=== PATIENT | male | born 1950 | race Caucasian/White ===

== ENCOUNTER 2018-08-17 12:30 | Inpatient (IN) | payer MEDICARE ==
--- NOTE | 2018-08-17 13:29 | RAD ---
XR Chest 1 View Portable History: Altered mental status Comparison: None. Findings: Abnormal nodular densities left lung base. No pneumothorax. No effusion. No acute osseous a bnormality. Cardiac silhouette and mediastinal contours are within normal limits. Impression: Abnormal left basilar opacity concerning for infection. Follow-up after treatment recomme nded.
[2018-08-17 13:33] LABS: Hemoglobin 15.9 g/dL (14.0-18.0); Mean Corpuscular HGB CONC 33.9 g/dL (32.0-36.0); Mean Corpuscular Hemoglobin 32.3 pg (27.0-31.0); Mean Corpuscular Volume 95.1 fL (78.0-98.0); RBC Distribution Width 14.6 % (11.5-14.5); Red Blood Cell (RBC) Count 4.92 mill/uL (4.70-6.10); White Blood Cell (WBC) Count 7.2 thou/uL (4.8-10.8)
[2018-08-17 13:35] LABS: INR-International Normal Ratio 2.1
[2018-08-17 13:36] LABS: PTT 45.4 SEC (22.9-36.1)
[2018-08-17 13:42] LABS: Band 1 % (5-11); Eosinophils 1 % (0-10); Lymphocytes 11 % (21-51); MDiff Complete? YES; Mean Platelet Volume 7.3 fL (7.4-10.4); Monocytes 3 % (0-10); Neutrophil 84 % (42-75); Platelet Count 83 thou/uL (130-400); Platelet Morphology Comment Appears Decreased; RBC Morphology Normal
[2018-08-17 13:45] LABS: ALT (SGPT) 81 U/L (8-55); AST (SGOT) 115 U/L (5-34); Albumin 2.7 g/dL (3.4-4.8); Alkaline Phosphatase 128 U/L (40-150); Anion Gap 16 mmol/L (10-20); BUN (Urea Nitrogen) 20 mg/dL (8.4-25.7); CK (CPK) 313 U/L (30-200); Calc. Creatinine Clearance 0 mL/min (70-130); Carbon Dioxide 20 mmol/L (23-31); Chloride 79 mmol/L (98-107); Estimated GFR-MDRD Greater than 90; Glucose 74 mg/dL (80-115); Lipase 91 U/L (8-78); Potassium 4.8 mmol/L (3.5-5.1); Protein, Total 5.7 g/dL (5.8-8.1)
[2018-08-17 13:49] LABS: Acetaminophen Less than 6.0 mcg/mL (10.0-30.0); Alcohol Less than 10 mg/dL (Less than 10); Magnesium 1.8 mg/dL (1.6-2.6); Salicylate Less than 8.0 mg/dL (15.0-30.0)
[2018-08-17 13:52] LABS: Sodium 110 mmol/L (136-145)
--- NOTE | 2018-08-17 14:37 | CT ---
CT BRAIN WITHOUT CONTRAST: Date: 08/17/18 HISTORY: Altered mental status. FINDINGS: No evidence of infarct, hemorrhage, midline shift, or abnormal extra-axial fluid collections are seen . The ventricular size is appropriate and the basilar cisterns are patent. The bony calvarium is inta ct. The visualized paranasal sinuses and mastoid air cells are well aerated. IMPRESSION: No CT evidence of acute intracranial process. POS: T[facility]
--- NOTE | 2018-08-17 14:50 | PDOC.FPRHP ---
- History of Present Illness Chief Complaint: weakness History of Present Illness: 67yo M with pmh of EtOH abuse and alcoholic cirrhosis (sober 2 years now), presents with 2 weak history of weakness and decreased PO intake. Pt sister has also noticed he has been becoming more yellow and abdomen has been increasing in size. Pt recently moved from [place] and has not established medical care in [place] yet. He does have a operations developer in [place] but has never required a paracentesis. No fever/chills, no GIB, no diarrhea/constipation. Pt does report EGD but is unsure if he has varices. ED Course: 1L NS, paracentesis - Allergies/Adverse Reactions Allergies Allergy/AdvReac Type Severity Reaction Status Date / Time No Known Allergies Allergy Unverified 08/17/18 17:19 - Home Medications Medication Instructions Recorded Confirmed Type Furosemide [Lasix] 40 mg PO DAILY 08/17/18 08/17/18 History Levothyroxine Sodium [Synthroid] 100 mcg PO DAILY 08/17/18 08/17/18 History Pravastatin Sodium 20 mg PO HS 08/17/18 08/17/18 History Spironolactone [Aldactone] 100 mg PO DAILY 08/17/18 08/17/18 History Temazepam 15 mg PO HS 08/17/18 08/17/18 History - History PMHx: Alcoholic cirrhosis, right bundle branch block, hypothyroid, hypertension , HLD PSHx: none FHx: non contributory Social: former alcohol abuse (sober 2 years), no smoking, denies drugs - Review of Systems General: reports: fatigue. denies: fever/chills Eyes: denies: eye pain, vision changes ENT: denies: nasal congestion Respiratory: denies: cough, congestion Cardiovascular: denies: chest pain, palpitation Gastrointestinal: denies: nausea, vomiting, diarrhea, constipation, abdominal pain, GI bleeding Genitourinary: denies: incontinence, dysuria Skin: denies: rashes, lesions Musculoskeletal: denies: pain, stiffness Neurological: reports: weakness. denies: syncope, seizure Psychological: denies: anxiety, depression - Vital signs BP: 116/66, Pulse: 76, Resp: 18, Temp: 97.7, Pain: 0, O2 sat: 94 on RA, Time: 14:35. weigh 103kg - Physical Exam Constitutional: NAD, awake, alert and oriented HEENT: grossly normal vision, grossly normal hearing -HEENT: scleral icterus, moderately dry MM Neck: supple, trachea midline Chest: no-tender to palpation Heart: RRR, normal S1/S2, other (+3 pitting edema in bilat LEs) Lungs: CTAB, no respiratory distress Abdomen: other (distended, positive fluid wave, no ttp) Musculoskeletal: normal structure, normal tone Neurological: no focal deficit, CN II-XII intact, normal sensation, DTRs 2+ Skin: good turgor -Skin: jaundice Heme/Lymphatic: no purpura, no petechia Psychiatric: normal mood and affect, good judgment and insight FMR H&P: Results - Labs Result Diagrams: 08/18/18 04:53 08/18/18 07:26 Lab results: WBC 7.2 thou/uL (4.8-10.8) 08/17/18 13:15 Hgb 15.9 g/dL (14.0-18.0) 08/17/18 13:15 Hct 46.7 % (42.0-52.0) 08/17/18 13:15 MCV 95.1 fL (78.0-98.0) 08/17/18 13:15 Plt Count 83 thou/uL (130-400) L 08/17/18 13:15 Band Neuts % (Manual) 1 % (5-11) L 08/17/18 13:15 Sodium 110 mmol/L (136-145) L* 08/17/18 13:15 Potassium 4.8 mmol/L (3.5-5.1) 08/17/18 13:15 Chloride 79 mmol/L (98-107) L 08/17/18 13:15 Carbon Dioxide 20 mmol/L (23-31) L 08/17/18 13:15 BUN 20 mg/dL (8.4-25.7) 08/17/18 13:15 Creatinine 0.81 mg/dL (0.7-1.3) 08/17/18 13:15 Glucose 74 mg/dL (80-115) L 08/17/18 13:15 Calcium 8.0 mg/dL (7.8-10.44) 08/17/18 13:15 Total Bilirubin 7.0 mg/dL (0.2-1.2) H 08/17/18 13:15 AST 115 U/L (5-34) H 08/17/18 13:15 ALT 81 U/L (8-55) H 08/17/18 13:15 Alkaline Phosphatase 128 U/L (40-150) 08/17/18 13:15 Ammonia 48 umol/L (18-72) 08/17/18 13:15 Creatine Kinase 313 U/L (30-200) H 08/17/18 13:15 Serum Total Protein 5.7 g/dL (5.8-8.1) L 08/17/18 13:15 Albumin 2.7 g/dL (3.4-4.8) L 08/17/18 13:15 Lipase 91 U/L (8-78) H 08/17/18 13:15 FMR H&P: A/P - Problem List (1) Alcoholic cirrhosis of liver with ascites Current Visit: Yes Status: Acute Code(s): K70.31 - ALCOHOLIC CIRRHOSIS OF LIVER WITH ASCITES (2) Hyponatremia Current Visit: Yes Status: Acute Code(s): E87.1 - HYPO-OSMOLALITY AND HYPONATREMIA (3) HTN (hypertension) Current Visit: Yes Status: Acute Code(s): I10 - ESSENTIAL (PRIMARY) HYPERTENSION (4) HLD (hyperlipidemia) Current Visit: Yes Status: Acute Code(s): E78.5 - HYPERLIPIDEMIA, UNSPECIFIED (5) Hypothyroid Current Visit: Yes Status: Acute Code(s): E03.9 - HYPOTHYROIDISM, UNSPECIFIED - Plan Severe range hyponatremia A- Likely chronic with mild sympoms at this time. Pt appeared slightly dry on exam but is s/p one L NS from ED P- Admit to IMCU -fluid restrict to 1500ml -BMP q1hr for 6 hours, then AM bmp. will monitor closely mild encephalopathy likely 2/2 above A- likely from hyponatremia vs liver failure P- monitor mental status, treatment per above Cirrhosis A- Dx in 2017, MELD score of 29. Pt has not required paracentesis as of now P- hepatitis studies -paracentesis performed -will consider GI consult ascites 2/2 alcoholic cirrhosis A- Pt s/p paracentesis for the first time (5L), INR 2.1, ammonia 48 P- f/u CSF studies -monitor vitals thrombocytopenia A- likely 2/2 cirrhosis, platelets 88. Pt has some blood around mouth but pt denies easy bleeding P- will continue to monitor HLD -home statin Hypothyroid -home levothyroxine CODE: FULL FMR H&P: Upper Level - Pertinent history 67 yo male who recently moved to the area presents for evaluation of weakness and AMS. Patient has known liver cirrhosis since 2017 due to alcoholism. Patient reports enlarging abdomen and increased weakness and confusion over last several days. His sister reports decreased PO intake over last 2 weeks as well. No fevers, chills, n/v/d, or seizure activity. Please see contracts intern note above for further history. Physical Exam: General: Male appears older than stated age HEENT: Scleral icterus, sublingual jaundice CV: RRR, no murmurs Respiratory: CTA-bilaterally, no wheezing Abdomen: Distended, obvious umbilical hernia, nontender Extremities: 3+ pitting edema bilaterally Neuro: No focal deficits, CN 2-12 grossly intact Psych: A&Ox3 - Plan Date/Time: 08/17/18 [id number] I, Kashif Munguia MD, have evaluated this patient and agree with findings/ plan as outlined by contracts intern resident. Pertinent changes/additions are listed here. 1. Symptomatic Hyponatremia - IVF - Goal to raise Na by 4-6 in first 24 hours - Admit ICU - Repeat BMPs to monitor 2. Liver cirrhosis - Diagnosis since 2017 - Paracentesis completed in ED - Ascitic fluid sent for studies to rule out SBP, other etiologies - Will send for Hepatic studies - Consider GI consultation - Caution with home diuretics - MELD SCORE 29 -> 19.6% 3 month mortality 3. Thrombocytopenia - Likely secondary to #2 - Hold on anticoagulation - Monitor bleeding 4. Hypothyroidism - Continue home medications 5. HLD - Continue home medications CODE STATUS: FULL CODE Disposition: Guarded, will admit to IMCU for further evaluation. Addendum - Attending - Attending Attestation Date/Time: 08/18/18 5639 I personally evaluated the patient and discussed the management with Dr. Cobos and Nilda on 08/17. I agree with the History, Examination, Assessment and Plan documented above with any addition or exceptions noted below. Please note that we did not obtain CSF but ascitic fluid in order to exclude SBP and establish the diagnosis for new onset ascites, as well as provide symptomatic relief. Deliberately avoided large volume due to hypoNa, which we will fluid restrict and observe closely.
[2018-08-17 17:09] LABS: Bilirubin Small (Negative); Blood, Urine Negative (Negative); Clarity CLEAR (Clear); Glucose, Urine (Dipstick) Negative (Negative); Leukocyte Small (Negative); Nitrite Negative (Negative); Protein, Urine (Dipstick) Negative (Neg-Trace); Specific Gravity, Urine 1.024 (1.002-1.036); pH, Urine 5.5 (5.0-9.0)
[2018-08-17 17:12] LABS: Bacteria/HPF None Seen HPF (None Seen); Hyaline Casts/LPF 0-3 HYALINE CAST LPF (0-3 Hyaline); Pathc Cast-AUWi Flag 0.13 (0-2.49); RBC/HPF 0-3 HPF (0-3); Squamous Epithelial None Seen HPF (0-3)
[2018-08-17] MEDS ORDERED: Pantoprazole 40 MG VIAL IVP SCH (17:18)
[2018-08-17] MEDS ORDERED: Calcium Carbonate 500 MG ChewTAB PO PRN (17:18)
[2018-08-17] MEDS ORDERED: Ondansetron PF 4 MG/2 ML Vial IVP PRN (17:18)
[2018-08-17] MEDS ORDERED: Ondansetron ODT 4 MG TAB PO PRN (17:18)
[2018-08-17 17:21] LABS: Amphetamine Not Detected (NotDetected); Barbiturates Screen Not Detected (NotDetected); Benzodiazepine Screen Detected (NotDetected); Cocaine Metabolite Screen Not Detected (NotDetected); Medtox Control Line Valid? VALID (VALID); Medtox Reader # READER 4; Methadone Not Detected (NotDetected); Methamphetamine Not Detected (NotDetected); Opiate Screen Not Detected (NotDetected); Oxycodone Screen Not Detected (NotDetected); Phencyclidine (PCP) Not Detected (NotDetected); THC/Cannabinoid Screen Not Detected (NotDetected); Tricyclic Screen Not Detected (NotDetected)
[2018-08-17] MEDS ORDERED: Sodium Chloride 0.9% (PF) 10 ML VIAL FS PRN (17:38)
[2018-08-17 18:15] LABS: BF Color Yellow; BF RBC Count - Manual 2150 /cumm; BF WBC/Nonhematics Ct. - Manua 26 /cumm; Body Fluid Source Ascites Body Fluid; Clarity Hazy (Clear); Tube # 3
--- NOTE | 2018-08-17 18:39 | PDOC.OP ---
Operative Note - Operative Note Operative Note: INDICATION: Ascites PROCEDURE PLANNER/SCHEDULER: Nilda Cobos Williamson ATTENDING PHYSICIAN: In Attendance (Y) Dr. Isaac Moeller Ultrasound used to raciel location: Y CONSENT: Consent was obtained from patient prior to the procedure. Indications, risks, and benefits were explained at length. PROCEDURE SUMMARY: A time-out was performed. My hands were washed immediately prior to the procedure. I wore a surgical cap, mask with protective eyewear, sterile gown and sterile gloves throughout the procedure. The area was cleansed and draped in usual sterile fashion using chlorhexidine scrub. Anesthesia was achieved with 1% lidocaine. The RLQ of the abdomen was prepped and draped in a sterile fashion using chlorhexidine scrub. 1% lidocaine was used to numb the skin, soft tissue and peritoneum. The paracentesis catheter was inserted and advanced with negative pressure until straw colored fluid was aspirated. Approximately 50 mL of ascitic fluid was collected and sent for laboratory analysis. The catheter was then connected to the vaccutainer and 5 liters of additional ascitic fluid were drained. The catheter was removed and no leaking was noted. Pressure and gauze was held for 4 minutes. A bandaid was placed over the puncture wound. The patient tolerated the procedure well without any immediate complications. Estimated blood loss was 5ml.
[2018-08-17 18:55] LABS: Anion Gap 12 mmol/L (10-20); BUN (Urea Nitrogen) 19 mg/dL (8.4-25.7); Calc. Creatinine Clearance 119 mL/min (70-130); Calcium 7.8 mg/dL (7.8-10.44); Carbon Dioxide 25 mmol/L (23-31); Chloride 80 mmol/L (98-107); Estimated GFR-MDRD Greater than 90; Glucose 72 mg/dL (80-115); Potassium 4.7 mmol/L (3.5-5.1)
[2018-08-17 19:02] LABS: BF Segmented Neutrophils 5 %; Cell Count Non Hematic 27 %; Lymphocytes 68 %
[2018-08-17 19:02] LABS: Sodium 112 mmol/L (136-145)
[2018-08-17 19:15] LABS: Syphilis Antibody Nonreactive (Nonreactive); Syphilis Antibody Index 0.08 S/CO (<1.00 Non-Reactive)
[2018-08-17 19:17] LABS: HBCM Index 0.13 S/CO (0-0.79); HBSAg Index 0.37 S/CO (0-0.99); HIV (1/2) Antibody/Antigen Non-Reactive (NonReactive); HIV 1/2 INDEX 0.11 S/CO (<1.00); Hep A IgM AB Non-Reactive (NonReactive); Hep A IgM S/CO 0.15 S/CO (0-0.79); Hep B Surf Ag Non-Reactive S/CO (NonReactive); Hep C IgG Ab Non-Reactive (NonReactive); Hep C Index 0.29 S/CO (0-0.79); Hepatitis B Core IgM Abs Non-Reactive (NonReactive)
[2018-08-17 19:20] LABS: HBSAB Concentration 550.03 mIU/mL; Hep B Surf AB Reactive (NonReactive)
[2018-08-17 19:53] LABS: Anion Gap 11 mmol/L (10-20); BUN (Urea Nitrogen) 19 mg/dL (8.4-25.7); Calc. Creatinine Clearance 122 mL/min (70-130); Calcium 7.7 mg/dL (7.8-10.44); Carbon Dioxide 25 mmol/L (23-31); Chloride 80 mmol/L (98-107); Estimated GFR-MDRD Greater than 90; Glucose 70 mg/dL (80-115); Potassium 4.6 mmol/L (3.5-5.1)
[2018-08-17 19:58] LABS: Sodium 111 mmol/L (136-145)
[2018-08-17] MEDS: Simvastatin 5 MG TAB PO SCH (20:41)
[2018-08-17] MEDS: Temazepam 15 MG CAP PO SCH (20:41)
[2018-08-17 20:49] LABS: Anion Gap 11 mmol/L (10-20); BUN (Urea Nitrogen) 19 mg/dL (8.4-25.7); Calc. Creatinine Clearance 125 mL/min (70-130); Calcium 7.7 mg/dL (7.8-10.44); Carbon Dioxide 25 mmol/L (23-31); Chloride 79 mmol/L (98-107); Estimated GFR-MDRD Greater than 90; Glucose 70 mg/dL (80-115); Potassium 4.3 mmol/L (3.5-5.1)
[2018-08-17 20:55] LABS: Sodium 111 mmol/L (136-145)
[2018-08-17 21:37] LABS: Anion Gap 11 mmol/L (10-20); BUN (Urea Nitrogen) 19 mg/dL (8.4-25.7); Calc. Creatinine Clearance 119 mL/min (70-130); Calcium 7.7 mg/dL (7.8-10.44); Carbon Dioxide 26 mmol/L (23-31); Chloride 79 mmol/L (98-107); Estimated GFR-MDRD Greater than 90; Glucose 96 mg/dL (80-115); Potassium 4.5 mmol/L (3.5-5.1)
[2018-08-17 21:49] LABS: Sodium 111 mmol/L (136-145)
[2018-08-17 22:32] LABS: Anion Gap 10 mmol/L (10-20); BUN (Urea Nitrogen) 19 mg/dL (8.4-25.7); Calc. Creatinine Clearance 116 mL/min (70-130); Calcium 7.8 mg/dL (7.8-10.44); Carbon Dioxide 27 mmol/L (23-31); Chloride 80 mmol/L (98-107); Estimated GFR-MDRD 90; Glucose 108 mg/dL (80-115); Potassium 4.4 mmol/L (3.5-5.1)
[2018-08-17 22:37] LABS: Sodium 113 mmol/L (136-145)
[2018-08-18 01:24] LABS: Anion Gap 10 mmol/L (10-20); BUN (Urea Nitrogen) 18 mg/dL (8.4-25.7); Calc. Creatinine Clearance 128 mL/min (70-130); Calcium 7.5 mg/dL (7.8-10.44); Carbon Dioxide 26 mmol/L (23-31); Chloride 80 mmol/L (98-107); Estimated GFR-MDRD Greater than 90; Glucose 92 mg/dL (80-115); Potassium 4.5 mmol/L (3.5-5.1)
[2018-08-18 01:26] LABS: Sodium 111 mmol/L (136-145)
[2018-08-18 05:21] LABS: #Eosinphils 0.1 thou/uL (0.0-0.7); #Monocytes 0.8 thou/uL (0.11-0.59); #Neutrophils 4.6 thou/uL (1.40-6.50); %Basophils 0.3 % (0.0-1.0); %Lymphocytes 26.8 % (21.0-51.0); %Monocytes 10.3 % (0.0-10.0); %Neutrophils 61.6 % (42.0-75.0); Hemoglobin 14.4 g/dL (14.0-18.0); Mean Corpuscular HGB CONC 34.4 g/dL (32.0-36.0); Mean Corpuscular Hemoglobin 32.2 pg (27.0-31.0); Mean Corpuscular Volume 93.6 fL (78.0-98.0); Mean Platelet Volume 7.3 fL (7.4-10.4); Platelet Count 77 thou/uL (130-400); RBC Distribution Width 14.4 % (11.5-14.5); Red Blood Cell (RBC) Count 4.46 mill/uL (4.70-6.10); White Blood Cell (WBC) Count 7.5 thou/uL (4.8-10.8)
[2018-08-18 05:36] LABS: Anion Gap 11 mmol/L (10-20); BUN (Urea Nitrogen) 18 mg/dL (8.4-25.7); Calc. Creatinine Clearance 138 mL/min (70-130); Calcium 7.4 mg/dL (7.8-10.44); Carbon Dioxide 24 mmol/L (23-31); Chloride 81 mmol/L (98-107); Estimated GFR-MDRD Greater than 90; Glucose 80 mg/dL (80-115); Potassium 4.5 mmol/L (3.5-5.1)
[2018-08-18 05:40] LABS: Sodium 111 mmol/L (136-145)
[2018-08-18] MEDS: Levothyroxine Sodium 100 MCG TAB PO SCH (06:00)
[2018-08-18] MEDS ORDERED: Sodium Chloride 0.9% 1,000 ML IV SCH (06:45)
[2018-08-18 08:09] LABS: Anion Gap 10 mmol/L (10-20); BUN (Urea Nitrogen) 17 mg/dL (8.4-25.7); Calc. Creatinine Clearance 134 mL/min (70-130); Calcium 7.5 mg/dL (7.8-10.44); Carbon Dioxide 25 mmol/L (23-31); Chloride 80 mmol/L (98-107); Estimated GFR-MDRD Greater than 90; Glucose 83 mg/dL (80-115); Potassium 4.5 mmol/L (3.5-5.1)
[2018-08-18 08:16] LABS: Sodium 110 mmol/L (136-145)
--- NOTE | 2018-08-18 08:33 | PDOC.FM ---
- Subjective Subjective: Pt continues to feel weak, though reports resolved abdominal pressure since paracentesis yesterday. No abdominal pain, no fever/chills - Objective Vital Signs & Weight: Vital Signs (12 hours) Temp 08/18/18 07:19 96.8 F L 08/18/18 03:50 97.8 F 08/17/18 23:50 97.8 F Weight Weight 96.4 kg Most Recent Monitor Data Heart Rate from ECG 97 NIBP 91/59 NIBP BP-Mean 69 Respiration from ECG 17 SpO2 94 I&O: 08/17/18 08/18/18 08/19/18 06:59 06:59 06:59 Intake Total 750 Output Total 600 Balance 150 Result Diagrams: 08/18/18 04:53 08/18/18 15:47 Phys Exam - Physical Examination Constitutional: NAD HEENT: oral pharynx no lesions scleral icterus Neck: no JVD, supple Respiratory: no wheezing, clear to auscultation bilateral Cardiovascular: RRR, no significant murmur Gastrointestinal: soft, non-tender Musculoskeletal: pulses present Neurological: normal sensation, moves all 4 limbs Psychiatric: normal affect, A&O x 3 Skin: no rash, normal turgor Dx/Plan (1) Alcoholic cirrhosis of liver with ascites Code(s): K70.31 - ALCOHOLIC CIRRHOSIS OF LIVER WITH ASCITES Status: Acute (2) Hyponatremia Code(s): E87.1 - HYPO-OSMOLALITY AND HYPONATREMIA Status: Acute (3) HTN (hypertension) Code(s): I10 - ESSENTIAL (PRIMARY) HYPERTENSION Status: Acute (4) HLD (hyperlipidemia) Code(s): E78.5 - HYPERLIPIDEMIA, UNSPECIFIED Status: Acute (5) Hypothyroid Code(s): E03.9 - HYPOTHYROIDISM, UNSPECIFIED Status: Acute - Plan Plan: Severe range hyponatremia A- Pt had no improvement overnight despite fluid restriction, pt is likely hypovolemic and appears dry. Likely chronic with mild symptoms at this time. P- NS 50ml/hr -consult nephro -BMP q3hr mild encephalopathy likely 2/2 above A- likely from hyponatremia vs liver failure P- monitor mental status, treatment per above Cirrhosis A- Dx in 2017, MELD score of 29. Pt has not required paracentesis as of now. hepatitis studies negative P-paracentesis performed -will consider GI consult ascites 2/2 alcoholic cirrhosis A- Pt s/p paracentesis for the first time (5L), INR 2.1, ammonia 48 P- f/u CSF studies -monitor vitals thrombocytopenia A- likely 2/2 cirrhosis, platelets 88. Pt has some blood around mouth but pt denies easy bleeding P- will continue to monitor HLD -home statin Hypothyroid -home levothyroxine CODE: FULL Addendum - Attending - Attending Attestation Date/Time: 08/18/18 1025 I personally evaluated the patient and discussed the management with Dr. Cobos I agree with the History, Examination, Assessment and Plan documented above with any addition or exceptions noted below. The patient was admitted yesterday after with slowing mentation. This is thought to be due to his severe hyponatremia in which sodium is 110 and liver causes. He underwent parcentesis. Consulting GI this morning. He was fluid restricted yesterday and sodium briefly increased to 113 before falling to 110. We have consulted nephrology who is treating with hypertonic saline. will continue to monitor bmp. He is also working with therapy. Will keep him in imcu.
[2018-08-18] MEDS ORDERED: Pantoprazole 40 MG VIAL IVP SCH (09:00)
[2018-08-18] MEDS ORDERED: Sodium Chloride 3% 100 ML IVPB SCH ×2 (09:45→14:30)
[2018-08-18 10:18] LABS: Anion Gap 10 mmol/L (10-20); BUN (Urea Nitrogen) 17 mg/dL (8.4-25.7); Calc. Creatinine Clearance 125 mL/min (70-130); Calcium 7.5 mg/dL (7.8-10.44); Carbon Dioxide 25 mmol/L (23-31); Chloride 81 mmol/L (98-107); Estimated GFR-MDRD Greater than 90; Glucose 95 mg/dL (80-115); Potassium 4.2 mmol/L (3.5-5.1)
[2018-08-18 10:27] LABS: Sodium 112 mmol/L (136-145)
--- NOTE | 2018-08-18 10:55 | CON ---
DATE OF CONSULTATION: 08/18/2018 Following encompassed 50 minutes of time, of that time, greater than 50% was spent with the patient and/or the patient's unit in the hospital. HISTORY OF PRESENT ILLNESS: The patient is a 67-year-old male, who has been admitted to the Family Medicine Service with fluid overload from ascites. He is also profoundly hyponatremic with sodium around 110. Surprisingly, he has had no seizure-type episodes. His mentation has been slower than usual according to the family. He had a large volume paracentesis done yesterday. He has known alcoholic liver disease and has not had any alcohol consumption since last January. He used to drink vodka quite heavily. PAST MEDICAL HISTORY: 1. Alcoholic cirrhosis. 2. Right bundle-branch block. 3. Hypothyroidism. 4. Hypertension. 5. Hyperlipidemia. PAST SURGICAL HISTORY: None. FAMILY MEDICAL HISTORY: Unremarkable. SOCIAL HISTORY: Has not drank since January 2018. Does not smoke. Does not use illicit drugs. 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 REVIEW OF SYSTEMS: Remarkable for abdominal distention, slow mentation. Otherwise, 12-point review of systems negative. PHYSICAL EXAMINATION: VITAL SIGNS: Temperature 96.8, pulse 97, blood pressure 91/59, and O2 saturation 94%. HEENT: Remarkable for profoundly icteric sclera. Oropharynx, icteric tongue. NECK: No adenopathy or JVD. LUNGS: Clear. CARDIAC: S1 and S2 regular without murmur. ABDOMEN: Distended with inverted umbilicus. EXTREMITIES: No clubbing, cyanosis, or edema. LABORATORY DATA: Sodium 110, potassium 4.5, chloride 80, CO2 of 25, BUN 17, creatinine 0.7, and glucose 83. White blood cell count 7.5, hematocrit 41.8, and platelet count 77. ASSESSMENT: 1. Alcoholic cirrhosis with Child C scoring. 2. Severe hyponatremia without evidence of seizure activity. RECOMMENDATIONS: 1. Recommend Nephrology consultation to see if the patient is probably a candidate for Vaprisol. For the time being, I would not give him hypertonic saline. 2. GI consultation. 3. Consider repeat paracentesis. Job ID: [id number]
[2018-08-18 12:10] VITALS: BP 95/55
[2018-08-18 12:46] VITALS: BMI 26.5
[2018-08-18 14:12] LABS: Anion Gap 9 mmol/L (10-20); BUN (Urea Nitrogen) 16 mg/dL (8.4-25.7); Calc. Creatinine Clearance 140 mL/min (70-130); Calcium 7.5 mg/dL (7.8-10.44); Carbon Dioxide 24 mmol/L (23-31); Chloride 83 mmol/L (98-107); Estimated GFR-MDRD Greater than 90; Glucose 93 mg/dL (80-115); Potassium 4.4 mmol/L (3.5-5.1)
[2018-08-18 14:15] LABS: Sodium 112 mmol/L (136-145)
[2018-08-18] MEDS ORDERED: Furosemide 20 MG TAB PO SCH (15:00)
[2018-08-18] MEDS ORDERED: Spironolactone 100 MG TAB PO SCH (15:00)
[2018-08-18] MEDS ORDERED: Phytonadione 10 MG/ML AMP PO SCH (15:15)
[2018-08-18 16:23] LABS: Anion Gap 10 mmol/L (10-20); BUN (Urea Nitrogen) 16 mg/dL (8.4-25.7); Calc. Creatinine Clearance 140 mL/min (70-130); Calcium 7.3 mg/dL (7.8-10.44); Carbon Dioxide 22 mmol/L (23-31); Chloride 83 mmol/L (98-107); Estimated GFR-MDRD Greater than 90; Glucose 113 mg/dL (80-115); Potassium 4.2 mmol/L (3.5-5.1)
[2018-08-18 16:33] LABS: Sodium 111 mmol/L (136-145)
--- NOTE | 2018-08-18 16:44 | CON ---
DATE OF CONSULTATION: 08/18/2018 CONSULTING PHYSICIAN: Dr. Matias Cobos. REASON FOR CONSULTATION: Severe hyponatremia. HISTORY OF PRESENT ILLNESS: A 67-year-old male with known history of alcoholic liver cirrhosis associated with ascites and lower extremity edema, who was admitted yesterday August 17 by the Family Medicine Service due to worsening edema and ascites associated with slow mentation and generalized weakness as well as poor oral intake. History was obtained from the patient and sister at bedside. The patient reportedly moved from [place] to stay with the sister in about 3-1/2 weeks ago. Since then, he was noticed to have worsening bilateral leg swelling as well as ascites/abdominal distention. Sister also reported that he has been speaking about what to eat as he is restricting his sodium intake with a view to reduce the swelling and leg swelling and lately was noticed to be weak generally barely getting out of bed. She also reported that the patient in the last few days has developed slow mentation. There was no history of nausea, vomiting, change in bowel habit. The patient however reported abdominal distention with pain, especially on sitting. There was no associated chest pain, fever, hematuria, or redness of lower extremities. The patient also denied hematuria, hematemesis, or hematochezia. On presentation to the ED on August 17, the patient was found to have hyponatremia with serum sodium of 110 and was treated with a liter of normal saline. The patient subsequently had 5 L paracentesis on August 17. The patient was continued with IV normal saline with serum sodium fluctuating since admission from 110 to 113 that was the peak and going back to 110, hence Nephrology consult. Of note, the patient was seen by clarifier operator in [place] and was told that he may be in need of liver transplant. Since coming over here, the patient and relatives have contacted a liver specialist in [place] and has an appointment with the clarifier operator in September 27, 2018. PAST MEDICAL HISTORY: 1. Hypothyroidism. 2. Hypertension. 3. Hyperlipidemia. 4. Chronic alcohol abuse. 5. Alcoholic liver cirrhosis. 6. Chronic bilateral leg edema. 7. Chronic abdominal distention. PAST SURGICAL HISTORY: None. FAMILY HISTORY: Noncontributory. SOCIAL HISTORY: The patient is a former alcohol user. Used to drink vodka. He has been sober for 2 years. Denied smoking or recreational drug use. ALLERGIES: NO KNOWN DRUG ALLERGIES REPORTED. MEDICATIONS: Prior to hospital medications. 1. Furosemide 40 mg p.o. daily. 2. Levothyroxine 100 mcg p.o. daily. 3. Pravastatin 20 mg daily at bedtime. 4. Spironolactone 100 mg p.o. daily. 5. Temazepam 15 mg p.o. daily at bedtime. Current hospital medications. 1. Normal saline at 100 mL/hour. 2. Levothyroxine 100 mcg p.o. daily. 3. Protonix 40 mg IV p.o. daily. 4. Simvastatin 10 mg p.o. daily at bedtime. 5. Restoril daily at bedtime p.r.n. 6. Calcium carbonate (Tums) 1000 mg p.o. q.4 p.r.n. for indigestion. 7. Zofran 4 mg p.o. q.6 p.r.n. REVIEW OF SYSTEMS: 12-point review of system performed was unremarkable other than pertinent positives and negatives included in the history of present illness. PHYSICAL EXAMINATION: VITAL SIGNS: Temperature is 96.8, pulse 83, respiratory rate 17, SpO2 of 94% on room air, blood pressure 93/60. GENERAL: Chronically ill-looking male with egg on stick appearance. Afebrile, acyanotic. Mild scleral icterus noted. HEENT: Normocephalic, atraumatic. Pupils are reacting to light. Oral mucosa is moist. NECK: Soft, nontender with good range of motion. No masses or adenopathy appreciated. No JVD appreciated. CARDIOVASCULAR: Regular rhythm and rate with normal heart sounds one and two. RESPIRATORY: Fair air entry bilaterally with no obvious crackle or rhonchi or use of accessory muscles. GI: Abdomen is distended and mildly tense. No tenderness. Umbilical hernia noted. Bowel sound is normoactive. UROGENITAL: Velarde catheter is in place. No obvious scrotal edema appreciated. EXTREMITIES: [id number] bilateral leg edema noted with no obvious erythema. NEUROLOGIC: Conscious, alert, oriented x3 with appropriate mental status. The patient has delayed response to some questions. Cranial nerves 2 through 12 are intact. The patient moves all extremities. DIAGNOSTIC DATA: CBC today showed WBC count of 7.5, hemoglobin of 14.4, MCV of 93.6, platelet of 77. Coagulation panel showed PT 24.0, INR 2.1, PTT 45.4. BMP today showed sodium 110, potassium 4.5, chloride 80, CO2 of 25, BUN 17, creatinine 0.73, glucose 83, calcium 7.5. CT brain performed on presentation showed no CT evidence of acute intracranial process. Chest x-ray performed on presentation on August 17, 2018 showed abnormal left basilar opacity concerning for infection. ASSESSMENT AND PLAN: 1. Severe hyponatremia: This most likely SIADH related to decompensated liver cirrhosis, given urine osmolality above 600 in the face of hypoosmolality. The patient was on normal saline. We will discontinue normal saline and commence fluid restriction to 1200 per day. 2. Anasarca: We will restart diuretic therapy with spironolactone 100 mg p.o. daily as well as Lasix 20 mg p.o. daily. 3. Ascites: The patient is status post paracentesis with drainage of 5 L of ascitic fluid August 17, 2018. GI has been consulted. We will defer to GI. 4. Decompensated advanced alcoholic liver cirrhosis. The patient may be a candidate for transplant. Otherwise, this is going to be terminal. 5. We will give 100 mL of hypertonic solution given complaint of slow mental processing and delayed response. 6. Acute encephalopathy: This may be related to hepatic or hyponatremia or both. We will increase serum sodium up to 115 to help with mentation should it be responsible. We will also start the patient on lactulose for possible hepatic encephalopathy. 7. We will monitor BMP with a view to repeating hypertonic solution if levels are still low. We will monitor levels to avoid over correction of plasma sodium. Many thanks for involving us in the care of this patient. We will follow along with you. Further recommendation to follow depending on hospital course. Job ID: [id number] [id number]
[2018-08-18] MEDS: Temazepam 15 MG CAP PO SCH (20:08)
[2018-08-18] MEDS: Simvastatin 5 MG TAB PO SCH (20:08)
[2018-08-18] MEDS: Pantoprazole 40 MG VIAL IVP SCH (20:09)
[2018-08-18 23:03] LABS: Anion Gap 8 mmol/L (10-20); BUN (Urea Nitrogen) 15 mg/dL (8.4-25.7); Calc. Creatinine Clearance 122 mL/min (70-130); Calcium 7.4 mg/dL (7.8-10.44); Carbon Dioxide 27 mmol/L (23-31); Chloride 82 mmol/L (98-107); Estimated GFR-MDRD Greater than 90; Glucose 96 mg/dL (80-115); Potassium 4.3 mmol/L (3.5-5.1)
[2018-08-18 23:07] LABS: Sodium 113 mmol/L (136-145)
--- NOTE | 2018-08-19 02:34 | CON ---
DATE OF CONSULTATION: 08/18/2018 REASON FOR CONSULTATION: Cirrhosis with ascites/lower extremity edema and hyponatremia. CONSULTING PHYSICIAN: Matias Cobos MD. HISTORY OF PRESENT ILLNESS: The patient is a 67-year-old male with past medical history of right bundle branch block, hypothyroidism, hypertension, hyperlipidemia, and history of alcoholic cirrhosis complicated by ascites, lower extremity edema and esophageal varices, presenting with increasing ascites and lower extremity edema. The patient recently moved from [place] to the [facility] around 4 weeks ago to stay with his sister. 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 However, since moving from [place] to [facility], he has noticed to have worsening bilateral lower extremity swelling, increased ascites, slowed mentation and generalized weakness. With the increase in his ascites and lower extremity edema, it prompted him to seek healthcare assistance at the [facility] ER. While in the ER, he was noted to have a significantly decreased serum sodium consistent with severe hyponatremia and was admitted to the hospital for further evaluation and management. While in the hospital, he has undergone paracentesis with approximately 5 L of fluid removed with the paracentesis results consistent with portal hypertension (although fluid albumin is not available for review). Currently, he states that he is unchanged when compared to admission and does have increased difficulty with his balance since moving to the [facility]. However, he currently denies any nausea, vomiting, fevers, chills, GI bleeding, dysphagia, odynophagia, diarrhea, or constipation. REVIEW OF SYSTEMS: A 10-category review of systems was obtained with all responses negative except for the pertinent positives as listed in HPI. PAST MEDICAL HISTORY: As per HPI. PAST SURGICAL HISTORY: None. FAMILY HISTORY: Denies any GI malignancies. SOCIAL HISTORY: Denies any tobacco, alcohol, or illicit drug use OUTPATIENT MEDICATIONS: Reviewed. ALLERGIES: NO KNOWN DRUG ALLERGIES. PHYSICAL EXAMINATION: VITAL SIGNS: Temperature 97.8, pulse 76, blood pressure 89/55, respiratory rate 13, saturating 95% on room air. GENERAL: The patient is lying in bed, in no acute distress. Alert and oriented x3. Thought process is slowed with possible mild slurring of the speech. HEENT. Neck is supple. Normocephalic, atraumatic. No JVD noted, but positive scleral icterus. CARDIOVASCULAR: Regular rate and rhythm with no discernible murmurs, gallops, or rubs. RESPIRATORY: Clear to auscultation bilaterally with no obvious wheezes or rales, although the patient did exhibit increased coughing during the course of this examination. ABDOMEN: Normoactive bowel sounds. Soft. No tenderness to palpation. However, the abdomen was significantly distended, but not tense to palpation. EXTREMITIES: Trace/1+bilateral lower extremity edema extending to the knee. LABORATORY DATA: CBC with a white blood cell count of 7.5, hemoglobin 14.4, hematocrit 41.8, platelets 77. INR 2.1. Chemistry with a sodium of 112, potassium 4.2, chloride 81, CO2 of 25, BUN 17, creatinine 0.78, glucose 95, AST 115, ALT 81, alkaline phosphatase 128, and total bilirubin 2.0. MELD score calculated at 29. IMAGING DATA: CT of the brain was obtained on August 17, 2018, which showed no CT evidence of acute intracranial process contributing to his slowed mentation. ASSESSMENT AND PLAN: The patient is a 67-year-old male with past medical history of right bundle branch block, hypothyroidism, hypertension, hyperlipidemia, and a history of alcoholic cirrhosis complicated by ascites, lower extremity edema and esophageal varices, presenting with worsening of the ascites, lower extremity edema, hyponatremia and slowed mentation concerning for hepatic encephalopathy. Cirrhosis. The patient is presenting with initial diagnosis of cirrhosis in 2017, believed due to chronic alcoholism. He is currently presenting with decompensated disease given the presence of ascites, lower extremity edema and history of esophageal varices. His current MELD score is calculated at 29 with a Child-Maguire classification C indicative of severe liver disease. Based on his MELD score and his current clinical status, he could be considered a transplant candidate and if his condition continues to worsen, I would highly recommend transfer to a liver transplant center. RECOMMENDATIONS: 1. Continue to monitor patient for the time being in terms of his cirrhosis with daily INR and chemistries daily to calculate MELD score. 2. If his MELD score continues to deteriorate, we will consider transfer to Transplant Center. 3. Ascites/lower extremity edema. The patient is presenting with significant/worsening ascites and lower extremity edema since transferring here from [place]. He has been fairly adherent to a low-sodium diet during this time, but despite this regimen has been retaining fluid. He has been taking diuretics as an outpatient, which could potentially increase his ascites/lower extremity edema due to decreases in blood pressure and decrease in mean arterial pressure below 82 mmHg. However, at this time, he does have significant ascites and as long as being concurrently treated for his hyponatremia, we would carefully monitor his diuretic management for this condition. 4. We would continue patient on furosemide 20 mg daily as well as spironolactone 100 mg daily, but we will consider increasing furosemide to 40 mg daily in a 5:2 distribution to maintain normal potassium level. 5. The patient will need to be monitored for his blood pressure and mean arterial pressure with consideration toward discontinuation of diuretics, if the mean atrial pressure continues to be less than 82 mmHg. 6. We would continue to follow up on culture of the ascitic fluid for possible SBP, although it is unlikely at this time. 7. Encephalopathy. The patient is presenting with fairly acute onset of slowed mental status and possible slurring of speech that has been present for the last 3.5 to 4 weeks. This could be due to his significant hyponatremia noted on labs on admission, but it could also be due to underlying liver disease with hepatic encephalopathy. 8. Agree with starting the patient on low-dose lactulose with a goal to titrate the lactulose to approximately three bowel movements per day for possible hepatic encephalopathy. 9. Severe hyponatremia. The patient is presenting with significant hyponatremia on labs, with initial labs being approximately 110 mEq. At this point, the most likely origin would be SIADH given his urine osmolality above 600, but could also be due to the use of diuretic medications in patients with a mean arterial pressure of less than 82 mmHg. 10. Agree with the Nephrology Service with sodium restriction at least initially to 1200 mL per day. I also agree with the gentle addition of hypertonic saline with the concurrent use of diuretic management. 11. However, I would also consider administration of albumin infusion at approximately 50 g b.i.d. daily for his hypernatremia. 12. We will also consider Midodrine titration in patients with consistent hypotension. 13. We will continue to follow. Please call with any questions. Job ID: [id number]
[2018-08-19 04:44] LABS: #Lymphocytes 1.7 thou/uL (1.20-3.40); #Monocytes 0.7 thou/uL (0.11-0.59); #Neutrophils 3.9 thou/uL (1.40-6.50); %Basophils 0.3 % (0.0-1.0); %Eosinophils 0.7 % (0.0-10.0); %Lymphocytes 26.8 % (21.0-51.0); %Monocytes 10.6 % (0.0-10.0); %Neutrophils 61.6 % (42.0-75.0); Hemoglobin 14.4 g/dL (14.0-18.0); Mean Corpuscular HGB CONC 34.3 g/dL (32.0-36.0); Mean Corpuscular Hemoglobin 32.5 pg (27.0-31.0); Mean Corpuscular Volume 94.7 fL (78.0-98.0); Mean Platelet Volume 7.5 fL (7.4-10.4); Platelet Count 65 thou/uL (130-400); RBC Distribution Width 14.7 % (11.5-14.5); Red Blood Cell (RBC) Count 4.42 mill/uL (4.70-6.10); White Blood Cell (WBC) Count 6.3 thou/uL (4.8-10.8)
[2018-08-19 04:57] LABS: Anion Gap 7 mmol/L (10-20); BUN (Urea Nitrogen) 15 mg/dL (8.4-25.7); Calc. Creatinine Clearance 130 mL/min (70-130); Calcium 7.4 mg/dL (7.8-10.44); Carbon Dioxide 27 mmol/L (23-31); Chloride 82 mmol/L (98-107); Estimated GFR-MDRD Greater than 90; Glucose 77 mg/dL (80-115); Potassium 4.4 mmol/L (3.5-5.1)
[2018-08-19 04:58] LABS: Sodium 112 mmol/L (136-145)
[2018-08-19] MEDS: Levothyroxine Sodium 100 MCG TAB PO SCH (05:27)
--- NOTE | 2018-08-19 07:46 | PDOC.FM ---
- Subjective Subjective: Pt resting peacefully this AM, denies any complaints this morning . no acute events overnight - Objective Vital Signs & Weight: Vital Signs (12 hours) Temp Pulse Ox 08/19/18 07:11 97.6 F 08/19/18 04:52 97.6 F 08/19/18 00:00 97.4 F L 08/18/18 20:00 95 08/18/18 19:46 97.8 F Weight Admit Weight 97.1 kg Weight 97 kg Most Recent Monitor Data Heart Rate from ECG 87 NIBP 92/55 NIBP BP-Mean 67 Respiration from ECG 16 SpO2 94 I&O: 08/18/18 08/19/18 08/20/18 06:59 06:59 06:59 Intake Total 750 1435 Output Total 600 875 Balance 150 560 Result Diagrams: 08/19/18 04:13 08/19/18 04:13 Phys Exam - Physical Examination Constitutional: NAD HEENT: moist MMs, oral pharynx no lesions Neck: no JVD, supple Respiratory: no wheezing mild bilateral inspiratory crackles Cardiovascular: RRR, no significant murmur Gastrointestinal: soft, non-tender Musculoskeletal: pulses present Neurological: normal sensation, moves all 4 limbs Psychiatric: normal affect Skin: no rash, normal turgor Dx/Plan (1) Alcoholic cirrhosis of liver with ascites Code(s): K70.31 - ALCOHOLIC CIRRHOSIS OF LIVER WITH ASCITES Status: Acute (2) Hyponatremia Code(s): E87.1 - HYPO-OSMOLALITY AND HYPONATREMIA Status: Acute (3) HTN (hypertension) Code(s): I10 - ESSENTIAL (PRIMARY) HYPERTENSION Status: Acute (4) HLD (hyperlipidemia) Code(s): E78.5 - HYPERLIPIDEMIA, UNSPECIFIED Status: Acute (5) Hypothyroid Code(s): E03.9 - HYPOTHYROIDISM, UNSPECIFIED Status: Acute - Plan Plan: Severe range hyponatremia A- Mild improvement with x2 100ml bolus of 3% saline. Nephro has restarted lasix and spironolactone P- continue fluid restrict -f/u nephro -QAM BMP mild encephalopathy likely 2/2 above A- likely from hyponatremia vs liver failure P- monitor mental status, treatment per above -continue low dose lactulose Cirrhosis A- Dx in 2017, MELD score of 29. Pt has not required paracentesis as of now. hepatitis studies negative. GI consulted, appreciate recs P-paracentesis performed -will plan for transfer if MELD score deteriorates ascites 2/2 alcoholic cirrhosis A- Pt s/p paracentesis for the first time (5L), INR 2.1, ammonia 48. fluid studies unconcerning P- will consider another tap should pt re-accumilate fluid -consider albumen on rounds today -monitor vitals thrombocytopenia A- likely 2/2 cirrhosis, platelets 88. Pt has some blood around mouth but pt denies easy bleeding P- will continue to monitor pulmonary crackles A- likely atelectasis, VSS and satting well on RA, no distress P- will give IS HLD -home statin Hypothyroid -home levothyroxine CODE: FULL Addendum - Attending - Attending Attestation Date/Time: 08/19/18 1036 I personally evaluated the patient and discussed the management with Dr. Cobos. I agree with the History, Examination, Assessment and Plan documented above with any addition or exceptions noted below. Pt received 2 doses of hypertonic saline which increased his sodium to 112 today. His mentation is still slow and he endorses still feeling very weak. Restarted diuretics. Will calculate meld score daily as gi recommends transfer to liver transplant center if he declines. Appreciate nephrology's help with hyponatremia.
[2018-08-19 08:45] LABS: INR-International Normal Ratio 2.2; PTT 49.2 SEC (22.9-36.1); Prothrombin Time 24.3 SEC (12.0-14.7)
[2018-08-19] MEDS ORDERED: Furosemide 20 MG TAB PO SCH ×3 (09:00→10:30)
[2018-08-19] MEDS: Albumin 25% 25 GM/100 ML BOT IVPB SCH ×2 (10:07→20:41)
[2018-08-19] MEDS: Spironolactone 100 MG TAB PO SCH (10:08)
[2018-08-19] MEDS: Sodium Chloride 1 GM TAB PO SCH ×3 (10:17→20:40)
[2018-08-19] MEDS ORDERED: Phytonadione 10 MG/ML AMP PO SCH ×2 (10:27→10:45)
--- NOTE | 2018-08-19 10:27 | PRG ---
DATE OF SERVICE: 08/19/2018 SUBJECTIVE: The patient is doing reasonably well, all things considered. He has no acute complaints. It looks like he got a couple of doses of hypertonic saline yesterday. OBJECTIVE: VITAL SIGNS: On exam, his temperature is 97.6, pulse 67, and blood pressure 92/57. HEENT: Remarkable for icteric sclerae and icteric oral mucous membranes. NECK: No adenopathy or JVD. LUNGS: Clear anteriorly. CARDIAC: S1 and S2. Regular. ABDOMEN: Distended. EXTREMITIES: No edema. LABORATORY DATA: Sodium 112, potassium 4.4, chloride 82, CO2 of 27, BUN 15, creatinine 0.7, and glucose 77. INR is 2.2. White blood cell count 6.4, hemoglobin 14, hematocrit 42, and platelet count 65. ASSESSMENT: 1. Cirrhosis with ascites. 2. Severe hyponatremia secondary to cirrhosis. 3. End-stage liver disease secondary to alcohol use. PLAN: 1. Sodium management per Nephrology. 2. Agree with diuretics and spironolactone. Following with you. Job ID: [id number]
[2018-08-19] MEDS ORDERED: Admixture Fee 1 EACH in Sodium Chloride 3% 100 ML FS SCH (12:15)
--- NOTE | 2018-08-19 12:18 | PRG ---
DATE OF SERVICE: 08/19/2018 SUBJECTIVE: A 67-year-old male with known history of alcoholic liver cirrhosis, admitted due to worsening abdominal distention and leg edema associated with slow mentation. The patient was found to have severe hyponatremia with sodium of 110, necessitating Nephrology consult. The patient reports feeling better today. Sister reported that his mentation is getting better and closer to baseline. No new complaints. Denied fever, chest pain, palpitations, or abdominal pain. Leg swelling persists, but he said to be better. OBJECTIVE: VITAL SIGNS: Temperature 97.4, pulse 67, respiratory rate 12, SpO2 of 96% on room air, and blood pressure 92/57. GENERAL: Chronically ill-looking male, in no obvious distress. Afebrile. Icteric. HEENT: Normocephalic and atraumatic. Pupils are reacting to light. Oral mucosa is moist. CARDIOVASCULAR: Regular rhythm and rate with normal heart sounds 1 and 2. RESPIRATORY: Fair air entry bilaterally with some transmitted sounds, possibly crackles at the bases. No respiratory distress appreciated. GI: Abdomen is distended, soft, and nontender with normal bowel sounds. EXTREMITIES: [id number] bilateral leg edema noted. NEUROLOGIC: Conscious, alert, and oriented x3 with appropriate mental status. Cranial nerves II through XII are intact. The patient moves all extremities. DIAGNOSTIC DATA: CBC showed WBC count of 6.3, hemoglobin of 14.4, MCV of 94.7, and platelet of 65. Coagulation panel showed PT 24.3, INR 2.2, and PTT 49.2. BMP showed sodium 112, potassium 4.4, chloride 82, CO2 of 27, BUN 15, creatinine 0.75, glucose 77, and calcium 7.4. ASSESSMENT AND PLAN: 1. Severe hyponatremia. Sodium is up marginally to 112. Mental status is improved. This is due to syndrome of inappropriate antidiuretic hormone secretion from advanced liver cirrhosis. We will give mobilises of hypertonic solution and continue with fluid restriction. Recommencement of Lasix with starting of albumin will help with free water excretion. We will monitor serum sodium to be showed the correction is not faster than desired. 2. Decompensated liver cirrhosis: Gastroenterology following. 3. Anasarca: Due to decompensated liver cirrhosis. Continue with diuretics, Lasix, and spironolactone, and monitor daily weights as well as intake and output. 4. Coagulopathy: Due to decompensated liver cirrhosis. We will start vitamin D 10 mg daily. 5. Acute encephalopathy: Multifactorial from hyponatremia and hepatic encephalopathy. Improving. We will continue lactulose. Job ID: [id number]
[2018-08-19 16:16] LABS: Anion Gap 7 mmol/L (10-20); BUN (Urea Nitrogen) 14 mg/dL (8.4-25.7); Calc. Creatinine Clearance 139 mL/min (70-130); Calcium 7.8 mg/dL (7.8-10.44); Carbon Dioxide 25 mmol/L (23-31); Chloride 86 mmol/L (98-107); Estimated GFR-MDRD Greater than 90; Glucose 76 mg/dL (80-115); Potassium 4.3 mmol/L (3.5-5.1)
[2018-08-19 16:22] LABS: Sodium 114 mmol/L (136-145)
--- NOTE | 2018-08-19 19:50 | PRG ---
DATE OF SERVICE: 08/19/2018 REASON FOR CONSULTATION: Cirrhosis with ascites/lower extremity edema and severe hyponatremia. SUBJECTIVE: The patient states that he is feeling better today with increased mentation when compared to previous per his sister, who is at bedside. His mentation is also improved per her assessment. Currently, he denies any nausea, vomiting, fevers, chills, GI bleeding, diarrhea, or constipation. He has not had any increased bowel movement since the institution of lactulose. However, he does continue to have increased abdominal swelling secondary to ascites. OBJECTIVE: VITAL SIGNS: Temperature 98.2, pulse 86, blood pressure 92/56, respiratory rate 16, saturating 94% on room air, mean arterial pressure 68 mmHg. GENERAL: The patient is lying in bed, in no acute distress. Alert and oriented x3. Thought process and mentation, improved from previous examination. CARDIOVASCULAR: Regular rate and rhythm. RESPIRATORY: Clear to auscultation bilaterally. ABDOMEN: Normoactive bowel sounds. Soft. No tenderness to palpation. Increased abdominal distention, but not tense to palpation. EXTREMITIES: Trace/1+ bilateral lower extremity edema extending to the knee. LABORATORY DATA: CBC with a white blood cell count of 6.3, hemoglobin 14.4, hematocrit 41.4, platelets 65. Chemistry with a sodium of 112, potassium 4.4, chloride 82, CO2 of 27, BUN 15, creatinine 0.75, glucose 77. IMAGING DATA: No current GI imaging is available for review. ASSESSMENT AND PLAN: The patient is a 67-year-old male with past medical history of right bundle-branch block, hypothyroidism, hypertension, hyperlipidemia, alcoholic cirrhosis complicated by ascites, lower extremity edema, and esophageal varices, presenting with worsening ascites, worsening lower extremity edema, and severe hyponatremia with slowed mentation concerning for hepatic encephalopathy. 1. Cirrhosis. The patient is currently presenting with decompensated disease, given the presence of ascites, lower extremity edema, and history of esophageal varices. Current calculated MELD score is 29 with Child-Maguire classification C indicative of severe liver disease. Based on his current MELD score, he would be considered a transplant candidate and did have an appointment on 09/27 for evaluation for these reasons. If the patient's clinical status was to deteriorate, I would recommend transfer to a liver transplant center. Recommendations;. a. Continue to monitor the patient with daily INR and chemistries to calculate MELD score. If two of his MELD scores continue to deteriorate, we will consider transfer to Transplant Center. 2. Ascites/lower extremity edema. The patient initially presenting with significant/worsening ascites without evidence of SBP on paracentesis and fluid analysis consistent with portal hypertension. Currently, seems to be responding to infusion of albumin in addition to hypertonic saline and diuretic administration as well. Recommendations;. a. We will continue the patient on furosemide 20 mg daily as well as spironolactone 100 mg daily, but we will consider increasing furosemide to 40 mg daily in a 5:2 distribution to maintain normal potassium level and avoid hyperkalemia. b. We will continue to monitor mean arterial pressure with consideration of discontinuation of diuretics as the mean arterial pressure continues to be less than 82 mmHg. 3. Encephalopathy. The patient initially presented with slowed mental status and slurring of speech initially on admission, but over the last 12 to 24 hours, has shown improvement in terms of his mentation. It is unclear if this is due to his significant hyponatremia versus underlying hepatic encephalopathy. Recommendations;. a. Agree with continuation of low-dose lactulose with a goal to titrate the lactulose, so that the patient is having approximately 3 bowel movements per day. 4. Severe hyponatremia. The patient initially presented with severe hyponatremia with initial labs showing levels of 110 mEq. At this point, the most likely etiology would be SIADH, given his history of cirrhosis and increased urine osmolality. Recommendations;. a. Agree with Nephrology Service with fluid restriction as well as gentle addition of hypertonic saline and concurrent use of diuretic management. b. We will continue albumin infusion at 50 g b.i.d. c. We will consider addition of midodrine if the patient continues to have consistent hypotension. We will continue to follow. Please call with any questions. Job ID: [id number]
[2018-08-19] MEDS: Simvastatin 5 MG TAB PO SCH (20:40)
[2018-08-19] MEDS: Temazepam 15 MG CAP PO SCH (20:40)
[2018-08-19] MEDS: Pantoprazole 40 MG VIAL IVP SCH (20:41)
[2018-08-19 22:33] LABS: Anion Gap 9 mmol/L (10-20); BUN (Urea Nitrogen) 14 mg/dL (8.4-25.7); Calc. Creatinine Clearance 129 mL/min (70-130); Calcium 7.6 mg/dL (7.8-10.44); Carbon Dioxide 25 mmol/L (23-31); Chloride 82 mmol/L (98-107); Estimated GFR-MDRD Greater than 90; Glucose 76 mg/dL (80-115); Potassium 4.2 mmol/L (3.5-5.1)
[2018-08-19 22:36] LABS: Sodium 112 mmol/L (136-145)
[2018-08-20 04:19] LABS: INR-International Normal Ratio 2.9; PTT 62.9 SEC (22.9-36.1); Prothrombin Time 30.6 SEC (12.0-14.7)
[2018-08-20 04:35] LABS: Band 1 % (5-11); Elliptocytes SLIGHT = 2-5 cells (100X) (0-1/hpf); Hemoglobin 12.3 g/dL (14.0-18.0); Lymphocytes 23 % (21-51); MDiff Complete? YES; Mean Corpuscular HGB CONC 33.8 g/dL (32.0-36.0); Mean Corpuscular Volume 94.7 fL (78.0-98.0); Mean Platelet Volume 6.9 fL (7.4-10.4); Monocytes 8 % (0-10); Neutrophil 68 % (42-75); Platelet Count 48 thou/uL (130-400); Platelet Morphology Comment Appears Decreased; RBC Distribution Width 14.8 % (11.5-14.5); Red Blood Cell (RBC) Count 3.84 mill/uL (4.70-6.10); White Blood Cell (WBC) Count 4.3 thou/uL (4.8-10.8)
[2018-08-20 04:39] LABS: Anion Gap 8 mmol/L (10-20); BUN (Urea Nitrogen) 12 mg/dL (8.4-25.7); Bilirubin, Total 6.2 mg/dL (0.2-1.2); Calc. Creatinine Clearance 139 mL/min (70-130); Calcium 8.1 mg/dL (7.8-10.44); Carbon Dioxide 26 mmol/L (23-31); Chloride 85 mmol/L (98-107); Estimated GFR-MDRD Greater than 90; Glucose 70 mg/dL (80-115); Potassium 4.2 mmol/L (3.5-5.1)
[2018-08-20 04:43] LABS: Sodium 115 mmol/L (136-145)
[2018-08-20] MEDS: Levothyroxine Sodium 100 MCG TAB PO SCH (06:26)
[2018-08-20] MEDS ORDERED: Furosemide 40 MG TAB PO SCH (09:00)
[2018-08-20] MEDS ORDERED: Phytonadione 10 MG/ML AMP PO SCH (09:00)
--- NOTE | 2018-08-20 09:13 | PDOC.FM ---
- Subjective Subjective: Pt feeling the same as yesterday, he is alert and oriented and feels weak but otherwise well. Denies any new complaints, denies fever/chills - Objective Vital Signs & Weight: Vital Signs (12 hours) Temp Pulse Ox 08/20/18 07:56 96 08/20/18 07:33 98.4 F 08/20/18 04:07 97.6 F 08/19/18 23:34 97.2 F L Weight Admit Weight 97.1 kg Weight 96.6 kg Most Recent Monitor Data Heart Rate from ECG 83 NIBP 90/53 NIBP BP-Mean 65 Respiration from ECG 14 SpO2 92 I&O: 08/19/18 08/20/18 08/21/18 06:59 06:59 06:59 Intake Total 1435 1370 Output Total 875 1750 Balance 560 -380 Result Diagrams: 08/20/18 03:51 08/20/18 03:51 Phys Exam - Physical Examination Constitutional: NAD HEENT: moist MMs, sclera anicteric Neck: supple, full ROM Respiratory: no wheezing, clear to auscultation bilateral Cardiovascular: RRR, no significant murmur Gastrointestinal: soft, non-tender Musculoskeletal: pulses present Neurological: normal sensation, moves all 4 limbs Psychiatric: normal affect, A&O x 3 Skin: no rash, normal turgor Dx/Plan (1) Alcoholic cirrhosis of liver with ascites Code(s): K70.31 - ALCOHOLIC CIRRHOSIS OF LIVER WITH ASCITES Status: Acute (2) Hyponatremia Code(s): E87.1 - HYPO-OSMOLALITY AND HYPONATREMIA Status: Acute (3) HTN (hypertension) Code(s): I10 - ESSENTIAL (PRIMARY) HYPERTENSION Status: Acute (4) HLD (hyperlipidemia) Code(s): E78.5 - HYPERLIPIDEMIA, UNSPECIFIED Status: Acute (5) Hypothyroid Code(s): E03.9 - HYPOTHYROIDISM, UNSPECIFIED Status: Acute - Plan Plan: Severe range hyponatremia A- Mild improvement with x2 100ml bolus of 3% saline and with addition of salt tabs. Nephro has restarted lasix and spironolactone P- continue fluid restrict -f/u nephro -QAM BMP, will get more frequently if more 3% needs to be given mild encephalopathy likely 2/2 above A- likely from hyponatremia and/or liver failure P- monitor mental status, treatment per above -continue low dose lactulose Cirrhosis A- Dx in 2017, MELD score of 29->31 today. Per GI recs if MELD deteriorates further will arrange for transfer to liver transplant center. Pt has not required paracentesis as of now. hepatitis studies negative. GI consulted, appreciate recs P-paracentesis performed on admission -will plan for transfer if MELD score deteriorates once more ascites 2/2 alcoholic cirrhosis A- Pt s/p paracentesis for the first time (5L), INR 2.1, ammonia 48. fluid studies unconcerning P- will consider another tap should pt re-accumilate fluid -continue albumen per GI management -monitor vitals thrombocytopenia A- likely 2/2 cirrhosis, platelets 88 on admission. Pt has some blood around mouth but pt denies easy bleeding P- will continue to monitor pulmonary crackles A- improved, was likely atelectasis, VSS and satting well on RA, no distress P- incentive spirometry -monitor for s/s of pneumonia HLD -home statin Hypothyroid -home levothyroxine CODE: FULL Addendum - Attending - Attending Attestation Date/Time: 08/20/18 1004 I personally evaluated the patient and discussed the management with Dr. Cobos. I agree with the History, Examination, Assessment and Plan documented above with any addition or exceptions noted below. The patient's sodium is up to 115. He has been started on salt tabs. Meld score worsened today. Per GI, if he has two worsening meld scores, consider transfer to liver transplant center.
--- NOTE | 2018-08-20 09:57 | PRG ---
DATE OF SERVICE: 08/20/2018 SUBJECTIVE: Mr. Peng is a little better today. He had no acute complaints. OBJECTIVE: VITAL SIGNS: On exam, his temperature is 98.4, pulse 83, blood pressure 90/53, and O2 saturation 92%. HEENT: Remarkable for icteric sclerae. NECK: No adenopathy or JVD. LUNGS: Clear. CARDIAC: S1 and S2, regular. ABDOMEN: Distended, but soft. EXTREMITIES: Jaundiced. LABORATORY DATA: Sodium 150, potassium 4.2, chloride 85, CO2 of 26, BUN 12, creatinine 0.7, and glucose 70. INR is 2.9. White blood cell count 4.3, hematocrit 36.4, and platelet count 48. ASSESSMENT: 1. Cirrhosis. 2. Thrombocytopenia. 3. Hyponatremia, slightly better with medical therapy. PLAN: 1. Continue the Aldactone, Lasix, and fluid restriction. 2. From my standpoint, he can transfer out to the floor. Job ID: [id number]
[2018-08-20] MEDS: Spironolactone 100 MG TAB PO SCH (10:27)
[2018-08-20] MEDS: Albumin 25% 25 GM/100 ML BOT IVPB SCH (10:28)
[2018-08-20] MEDS: Sodium Chloride 1 GM TAB PO SCH ×2 (10:29→15:59)
--- NOTE | 2018-08-20 15:36 | PRG ---
DATE OF SERVICE: 08/20/2018 SUBJECTIVE: A 67-year-old male with chronic liver cirrhosis, admitted due to worsening leg swelling and abdominal distention and was also found to have severe hyponatremia, for which Nephrology is seeing the patient. No new problem. Reported good night rest as well as improving swelling and abdominal distention. Denied bleeding, hematemesis, or hematuria. OBJECTIVE: VITAL SIGNS: Temperature 98.9, pulse 88, respiratory rate 17, SpO2 of 96% on room air, and blood pressure is 89/55. GENERAL: Chronically ill-looking male, in no obvious distress. Afebrile. Acyanotic. HEENT: Normocephalic and atraumatic. Oral mucosa is moist. RESPIRATORY: Fair air entry bilateral with no obvious crackle or rhonchi. CARDIOVASCULAR: Regular rhythm and rate with normal heart sounds 1 and 2. GI: Abdomen is distended, soft, nontender, with normal bowel sounds. EXTREMITIES: Moderate bilateral leg edema noted. No erythema, ecchymosis, or cyanosis noted. NEUROLOGIC: Conscious and alert and oriented x3 with appropriate mental status. Moves all extremities. DIAGNOSTIC DATA: CBC showed WBC count of 4.3, hemoglobin of 12.3, and platelets of 48. Coagulation panel showed PT 30.6, INR 2.9, and PTT 62.9. BMP showed sodium 115, potassium 4.2, chloride 85, CO2 of 26, BUN 12, creatinine 0.71, glucose 70, and calcium 8.1. Magnesium is pending. Total bilirubin is 6.2, albumin is 2.9. ASSESSMENT AND PLAN: 1. 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 Sodium is finally up to 115 from 110 with fluid restriction, hypertonic solution, and diuretic therapy. We will continue the same and monitor sodium level. We will be cautious not to correct the level fast. 2. Anasarca due to decompensated liver cirrhosis: We will continue the spironolactone and Lasix. 3. Coagulopathy: Related to liver cirrhosis. Continue vitamin D and monitor INR daily. 4. Acute encephalopathy, most likely from hepatic encephalopathy and hyponatremia. Improved. 5. Decompensated liver cirrhosis. The patient is status post thoracentesis. GI is following. 6. We will continue to monitor daily weight. Is and Os and electrolytes. Job ID: [id number]
--- NOTE | 2018-08-20 17:17 | PDOC.EVN ---
Event Note - Event Note Event Note: Spoke with THAI Ponce, and he recommended transfer to transplant center in [place], [place]. Patient and family are agreeable to this due to severity of illness. All questions answered. Spoke with Dr. Holguin, inpatient hospitalist and Dr. Virgen, paper sorter and they have agreed to accept to their services for further evaluation and treatment. Patient will be transported by ground ambulance. Dr. Argueta is aware of the case and is in agreement.
--- NOTE | 2018-08-20 17:31 | PRG ---
DATE OF SERVICE: 08/20/2018 REASON FOR CONSULTATION: Cirrhosis with ascites/lower extremity edema and severe hyponatremia. SUBJECTIVE: The patient states that his lower extremity swelling and abdominal distention has improved somewhat, although he cannot quantify his urinary output due to the presence of a Velarde catheter. He does continue to have significant weakness, and at times, has been exhibiting increased confusion/encephalopathy per nursing staff. Otherwise, he denies any nausea, vomiting, fevers, chills, GI bleeding, diarrhea, or constipation. OBJECTIVE: VITAL SIGNS: Temperature 99, pulse 81, blood pressure 100/60, respiratory rate 19, saturating 96% on room air. GENERAL: The patient is lying in bed, in no acute distress. Alert and oriented x3. Thought process and mentation still somewhat slowed, but unchanged from yesterday's examination. CARDIOVASCULAR: Regular rate and rhythm. RESPIRATORY: Clear to auscultation bilaterally. ABDOMEN: Normoactive bowel sounds. Soft. No tenderness to palpation. Positive shifting dullness with increased abdominal distention, but not tense to palpation. EXTREMITIES: Trace/1+ bilateral lower extremity edema extending to the knee. LABORATORY DATA: CBC with a white blood cell count of 4.3, hemoglobin 12.3, hematocrit 36.4, platelets 48. INR 2.9. Chemistry with a sodium of 115, potassium 4.2, chloride 85, CO2 of 26, BUN 12, creatinine 0.71, glucose 70, total bilirubin 6.2, calculated MELD sodium score of 31. IMAGING DATA: No current GI imaging is available for review. ASSESSMENT AND PLAN: The patient is a 67-year-old male with past medical history of right bundle-branch block, hypothyroidism, hypertension, hyperlipidemia, alcoholic cirrhosis complicated by ascites, lower extremity edema, and esophageal varices, presenting with worsening ascites/lower extremity edema, severe hyponatremia, and slowed mentation concerning for hepatic encephalopathy. 1. Cirrhosis. The patient is currently presenting with decompensated disease with cirrhosis, given the presence of ascites, lower extremity edema, and history of esophageal varices with most likely etiology being alcohol abuse in the past. Current calculated MELD score is 31 with Child-Maguire classification C indicative of severe liver disease. During the course of this hospitalization, he has had a significant rise in his INR as well as with the presence of encephalopathy and currently rising MELD scores strongly concerning for progression of his end-stage liver disease with deterioration of his labs and the presence of encephalopathy, I would highly recommend transfer to a liver transplant center. Recommendations;. a. Continue to monitor the patient daily with INR and chemistries to calculate MELD score. b. With continued deterioration of his MELD score and with the presence of hepatic encephalopathy and some significant hyponatremia, I would highly recommend transfer to [place], to Transplant Center. 2. Ascites/lower extremity edema. The patient initially presented with significant worsening ascites without evidence of SBP on paracentesis and fluid analysis consistent with portal hypertension. Currently, he seems to be responding to infusion of albumin in addition to hypertonic saline and diuretic administration. Recommendations;. a. Would continue the patient on furosemide 20 mg daily as well as spironolactone 100 mg daily with consideration of increasing the furosemide to 40 mg daily if his urine output is not enough for adequate diuresis. b. Would continue to monitor mean arterial pressure with consideration of discontinuation of diuretics if the mean arterial pressure continues to be less than 82 mmHg. 3. Encephalopathy. The patient initially presented with slowed mental status and slurring of speech initially on admission, but has had some improvement in terms of mentation, although not back to baseline per family members. It is somewhat unclear if this is due to his significant hyponatremia versus underlying hepatic encephalopathy, but if it is due to encephalopathy, is highly concerning for worsening liver disease. Recommendations;. a. Agree with continuation of low-dose lactulose with goal to titrate the lactulose, so that the patient is having approximately 3 bowel movements per day. 4. Severe hyponatremia. The patient initially presented with severe hyponatremia with initial labs showing levels of 110 mEq. However, with the addition of hypertonic saline with diuretic management as well as infusion of daily albumin, his sodium has increased to 115 mEq. At this time, the most likely reason for his significant hyponatremia is due to profound SIADH. Recommendations;. a. Agree with Nephrology Service with fluid restriction as well as gentle addition of hypertonic saline with concurrent use of diuretic management. b. Would continue albumin infusion of 50 g b.i.d. c. Would consider addition of midodrine if the patient continues to have consistent hypotension and/or hyponatremia not responding to the above. We will continue to follow while inpatient here, but again strongly recommend transfer to higher level of care. Please call with any questions. Job ID: [id number]
[2018-08-20 19:50] VITALS: TEMP 99.4
== END 2018-08-20 19:40 | disposition short-term general hospital (02) | DRG 433 ==
LOC: ERS 12:30 → IMCU/EMU 17:56
PROVIDERS: ADMIT Emergency Medicine; ATTEND Emergency Medicine
PROC: 0W9G3ZZ Drainage of Peritoneal Cavity, Percutaneous Approach (ICD-10-PCS; principal; 2018-08-17)
DX: K70.31 Alcoholic cirrhosis of liver with ascites (principal); D68.9 Coagulation defect, unspecified; K76.6 Portal hypertension; I85.00 Esophageal varices without bleeding; E22.2 Syndrome of inappropriate secretion of antidiuretic hormone; G93.49 Other encephalopathy; K72.90 Hepatic failure, unspecified without coma; E03.9 Hypothyroidism, unspecified; I10 Essential (primary) hypertension; E78.5 Hyperlipidemia, unspecified; D69.6 Thrombocytopenia, unspecified; F10.20 Alcohol dependence, uncomplicated; Y90.0 Blood alcohol level of less than 20 mg/100 ml; Z87.891 Personal history of nicotine dependence; Z79.899 Other long term (current) drug therapy
CPT/HCPCS: 36415; 51701; 70450; 71045; 80048; 80053; 80306; 80307; 81003; 81015; 82040; 82042; 82140; 82247; 82550; 82945; 83615; 83690; 83735; 83930; 83935; 84157; 84300; 84443; 84484; 85025; 85060; 85610; 85730; 86705; 86706; 86709; 86780; 86803; 87070; 87205; 87340; 87389; 89051; 93005; 96360; 96361; C9113; J3430; J7131; P9047

== ENCOUNTER 2018-09-08 18:26 | Emergency (ER) | payer MEDICARE ==
[2018-09-08 19:35] LABS: Anion Gap 12 mmol/L (10-20); BUN (Urea Nitrogen) 18 mg/dL (8.4-25.7); Calc. Creatinine Clearance 0 mL/min (70-130); Calcium 8.1 mg/dL (7.8-10.44); Carbon Dioxide 28 mmol/L (23-31); Chloride 90 mmol/L (98-107); Estimated GFR-MDRD Greater than 90; Glucose 98 mg/dL (80-115); Potassium 3.3 mmol/L (3.5-5.1); Sodium 127 mmol/L (136-145)
[2018-09-08] MEDS ORDERED: Albumin 25% 25 GM/100 ML BOT IVPB SCH (22:00)
[2018-09-08] MEDS ORDERED: Ondansetron PF 4 MG/2 ML Vial ONE (22:01)
[2018-09-08] MEDS ORDERED: Potassium Chloride 20 MEQ TAB ONE (22:01)
[2018-09-08] MEDS ORDERED: Magnesium 2 GM/50 ML BAG (IN WATER) ONE (22:01)
[2018-09-08 23:15] LABS: Hemoglobin 12.2 g/dL (14.0-18.0); Mean Corpuscular Volume 99.8 fL (78.0-98.0); RBC Distribution Width 18.7 % (11.5-14.5); Red Blood Cell (RBC) Count 3.71 mill/uL (4.70-6.10); White Blood Cell (WBC) Count 4.8 thou/uL (4.8-10.8)
[2018-09-08 23:52] LABS: Band 4 % (5-11); Eosinophils 2 % (0-10); Lymphocytes 32 % (21-51); MDiff Complete? YES; Mean Platelet Volume 7.5 fL (7.4-10.4); Monocytes 8 % (0-10); Neutrophil 53 % (42-75); Platelet Count 100 thou/uL (130-400); Platelet Morphology Comment Appears Decreased; Reactive Lymphocytes 1 % (0-10)
[2018-09-09 02:01] LABS: Body Fluid Source Paracentesis Fluid
[2018-09-09 02:02] LABS: BF Color Yellow; Clarity Clear (Clear); Tube # EDTA
[2018-09-09 02:03] LABS: BF RBC Count - Manual 1489 /cumm; BF WBC/Nonhematics Ct. - Manua 65 /cumm
[2018-09-09 02:33] LABS: BF Segmented Neutrophils 4 %; Cell Count Non Hematic 51 %; Lymphocytes 45 %
== END 2018-09-09 02:23 | disposition home or self-care (01) ==
LOC: ERS 18:26
DX: E87.6 Hypokalemia (principal); E03.9 Hypothyroidism, unspecified; E78.5 Hyperlipidemia, unspecified; Z79.899 Other long term (current) drug therapy
CPT/HCPCS: 80048; 82945; 83735; 84157; 85025; 87070; 87205; 89051; 93005; 96365; 96366; 96367; 96375; 99283; P9047; 36415; 80053; 82248; 85060; J2405; J3475

== ENCOUNTER 2018-09-10 20:51 | Emergency (ER) | payer MEDICARE ==
[2018-09-10 21:24] LABS: #Basophils 0.1 thou/uL (0.0-0.2); #Eosinphils 0.1 thou/uL (0.0-0.7); #Lymphocytes 1.8 thou/uL (1.20-3.40); #Monocytes 0.7 thou/uL (0.11-0.59); #Neutrophils 2.3 thou/uL (1.40-6.50); %Basophils 1.1 % (0.0-1.0); %Eosinophils 1.4 % (0.0-10.0); %Lymphocytes 37.2 % (21.0-51.0); %Monocytes 13.2 % (0.0-10.0); %Neutrophils 47.2 % (42.0-75.0); Hemoglobin 12.2 g/dL (14.0-18.0); Mean Corpuscular HGB CONC 33.2 g/dL (32.0-36.0); Mean Corpuscular Hemoglobin 33.3 pg (27.0-31.0); Platelet Count 113 thou/uL (130-400); RBC Distribution Width 18.4 % (11.5-14.5); Red Blood Cell (RBC) Count 3.66 mill/uL (4.70-6.10); White Blood Cell (WBC) Count 4.9 thou/uL (4.8-10.8)
[2018-09-10 21:29] LABS: INR-International Normal Ratio 1.9; PTT 43.3 SEC (22.9-36.1); Prothrombin Time 21.8 SEC (12.0-14.7)
[2018-09-10 21:43] LABS: ALT (SGPT) 46 U/L (8-55); AST (SGOT) 65 U/L (5-34); Albumin 3.2 g/dL (3.4-4.8); Alkaline Phosphatase 116 U/L (40-150); Anion Gap 12 mmol/L (10-20); BUN (Urea Nitrogen) 19 mg/dL (8.4-25.7); Bilirubin, Total 5.7 mg/dL (0.2-1.2); Calc. Creatinine Clearance 0 mL/min (70-130); Carbon Dioxide 26 mmol/L (23-31); Chloride 93 mmol/L (98-107); Estimated GFR-MDRD Greater than 90; Globulin 2.7 g/dL (2.4-3.5); Glucose 108 mg/dL (80-115); Lipase 93 U/L (8-78); Protein, Total 5.9 g/dL (5.8-8.1); Sodium 127 mmol/L (136-145)
[2018-09-10 21:44] LABS: ALT (SGPT) 47 U/L (8-55); AST (SGOT) 63 U/L (5-34); Albumin 3.3 g/dL (3.4-4.8); Alkaline Phosphatase 118 U/L (40-150); Bilirubin, Direct 1.7 mg/dL (0.1-0.3); Bilirubin, Total 5.7 mg/dL (0.2-1.2); Protein, Total 5.9 g/dL (5.8-8.1)
[2018-09-11] MEDS ORDERED: Lidocaine 1% w/Epinephrine 1:100K 20 ML VIAL ONE (00:21)
== END 2018-09-11 00:53 | disposition home or self-care (01) ==
LOC: ERS 20:51
DX: T81.89XA Other complications of procedures, not elsewhere classified, initial encounter (principal); E87.1 Hypo-osmolality and hyponatremia; K74.60 Unspecified cirrhosis of liver; E03.9 Hypothyroidism, unspecified; E78.5 Hyperlipidemia, unspecified; Z79.899 Other long term (current) drug therapy
CPT/HCPCS: 12001; 36415; 80053; 83690; 85025; 85610; 85730; J2001

== ENCOUNTER 2018-09-15 07:55 | Day surgery (SDC) | payer MEDICARE ==
[2018-09-14 13:46] VITALS: BMI 22.2
[2018-09-15] MEDS ORDERED: Albumin 25% 200 ML ONE (08:15)
[2018-09-15] MEDS ORDERED: Sodium Bicarbonate 2.5 MEQ/5 ML VIAL ONE (08:15)
[2018-09-15 08:20] LABS: INR-International Normal Ratio 1.8; Prothrombin Time 20.6 SEC (12.0-14.7)
[2018-09-15 08:21] LABS: PTT 44.6 SEC (22.9-36.1)
[2018-09-15 08:23] LABS: #Basophils 0.1 thou/uL (0.0-0.2); #Eosinphils 0.1 thou/uL (0.0-0.7); #Lymphocytes 1.9 thou/uL (1.20-3.40); #Monocytes 0.8 thou/uL (0.11-0.59); #Neutrophils 2.4 thou/uL (1.40-6.50); %Basophils 1.3 % (0.0-1.0); %Eosinophils 2.5 % (0.0-10.0); %Lymphocytes 36.4 % (21.0-51.0); %Monocytes 14.4 % (0.0-10.0); %Neutrophils 45.4 % (42.0-75.0); Hemoglobin 12.3 g/dL (14.0-18.0); Mean Corpuscular HGB CONC 32.5 g/dL (32.0-36.0); Mean Corpuscular Hemoglobin 32.4 pg (27.0-31.0); Mean Corpuscular Volume 99.7 fL (78.0-98.0); Mean Platelet Volume 6.8 fL (7.4-10.4); Platelet Count 104 thou/uL (130-400); RBC Distribution Width 17.9 % (11.5-14.5); Red Blood Cell (RBC) Count 3.79 mill/uL (4.70-6.10); White Blood Cell (WBC) Count 5.3 thou/uL (4.8-10.8)
[2018-09-15 08:43] VITALS: BP 96/60; TEMP 98.4
[2018-09-15] MEDS ORDERED: Sodium Chloride 0.9% 10 ML ONE (09:08)
--- NOTE | 2018-09-15 11:52 | ULT ---
US Paracentesis with Imaging HISTORY: Recurrent ascites COMPARISON: None. FINDINGS: After informed consent was obtained patient was prepped and draped in normal sterile fashio n. Largest pocket of fluid was in the right lower quadrant of the abdomen. Local anesthesia obtained with 1% Xylocaine. A #11 scalpel blade was used to make a small skin incision. A 6 German King eh catheter was then introduced under ultrasound guidance without difficulty. A total of 8 L of typical straw-colored fluid was obtained. There are no immediate complications of the procedure. IMPRESSION: Paracentesis of 8 L of fluid.
== END 2018-09-15 10:05 | disposition home or self-care (01) ==
LOC: ULT 07:55
PROVIDERS: ATTEND Internal Medicine
PROC: 0W9G30Z Drainage of Peritoneal Cavity with Drainage Device, Percutaneous Approach (ICD-10-PCS; principal; 2018-09-15)
DX: K74.60 Unspecified cirrhosis of liver (principal); R18.8 Other ascites; E87.1 Hypo-osmolality and hyponatremia; E03.9 Hypothyroidism, unspecified; E78.5 Hyperlipidemia, unspecified; Z79.899 Other long term (current) drug therapy
CPT/HCPCS: 49083; 85025; 85610; 85730; P9047

== ENCOUNTER 2018-09-25 09:56 | Day surgery (SDC) | payer MEDICARE ==
[2018-09-22 09:00] VITALS: BMI 22.2
[2018-09-25] MEDS ORDERED: Sodium Bicarbonate 2.5 MEQ/5 ML VIAL ONE (10:09)
[2018-09-25] MEDS ORDERED: Albumin 25% 200 ML ONE (10:09)
[2018-09-25] MEDS ORDERED: Sodium Chloride 0.9% 10 ML ONE (11:36)
--- NOTE | 2018-09-25 11:59 | ULT ---
Ultrasound-guided paracentesis: 09/25/2018 HISTORY: Symptomatic ascites FINDINGS: Informed consent obtained prior to the procedure. Preprocedural imaging demonstrated signif icant ascites throughout the abdomen and pelvis. Right lower quadrantprepped and draped in normal sterile fashion and anesthetized with 1% buffered li docaine. With direct sonographic guidance, 5 Persian Yueh catheter is advanced into the ascites and removal of the stylet yielded ruthann-coloredfluid. 5.8 L were removed. The patient tolerated the procedure well. No postprocedural complications. IMPRESSION: Successful ultrasound-guided paracentesis yielding 5.8 L of ruthann-colored fluid.
[2018-09-25 12:17] VITALS: BP 105/62; TEMP 98.6
== END 2018-09-25 12:00 | disposition home or self-care (01) ==
LOC: ULT 09:56
PROVIDERS: ATTEND Internal Medicine
PROC: 0W9G3ZX Drainage of Peritoneal Cavity, Percutaneous Approach, Diagnostic (ICD-10-PCS; principal; 2018-09-25)
PROC: BW40ZZZ Ultrasonography of Abdomen (ICD-10-PCS; 2018-09-25)
DX: K70.31 Alcoholic cirrhosis of liver with ascites (principal); K42.9 Umbilical hernia without obstruction or gangrene; E87.6 Hypokalemia; E03.9 Hypothyroidism, unspecified; F32.9 Major depressive disorder, single episode, unspecified; E78.5 Hyperlipidemia, unspecified; Z87.891 Personal history of nicotine dependence; Z79.899 Other long term (current) drug therapy
CPT/HCPCS: 49083; P9047; 80053; 82248; 85025; 85610

== ENCOUNTER 2018-10-13 10:03 | Day surgery (SDC) | payer MEDICARE ==
[2018-10-12 12:52] VITALS: BMI 22.2
[2018-10-13] MEDS ORDERED: Sodium Bicarbonate 2.5 MEQ/5 ML VIAL ONE (10:05)
--- NOTE | 2018-10-13 13:59 | ULT ---
Ultrasound-guided paracentesis: 10/13/2018 HISTORY: Symptomatic ascites FINDINGS: Informed consent obtained prior to the procedure. Preprocedural imaging demonstrated signif icant ascites throughout the abdomen and pelvis. Right lower quadrantprepped and draped in normal sterile fashion and anesthetized with 1% buffered li docaine. With direct sonographic guidance, 5 Comoran Yueh catheter is advanced into the ascites and removal of the stylet yielded yellowfluid. 7.5 L were removed. The patient tolerated the procedure well. No postprocedural complications. IMPRESSION: Successful ultrasound-guided paracentesis yielding 7.5 L of yellow fluid.
== END 2018-10-13 11:35 | disposition home or self-care (01) ==
LOC: ULT 10:03
PROVIDERS: ATTEND Internal Medicine
PROC: 0W9G3ZZ Drainage of Peritoneal Cavity, Percutaneous Approach (ICD-10-PCS; principal; 2018-10-13)
DX: K70.31 Alcoholic cirrhosis of liver with ascites (principal); E03.9 Hypothyroidism, unspecified; K42.9 Umbilical hernia without obstruction or gangrene; Z87.891 Personal history of nicotine dependence; Z79.899 Other long term (current) drug therapy
CPT/HCPCS: 49083

== ENCOUNTER 2018-11-09 10:12 | Day surgery (SDC) | payer MEDICARE ==
[2018-11-08 14:05] VITALS: BMI 20.2
[~2018-11-09 10:12] MED LIST: Albumin 25% 200 ML ONE
--- NOTE | 2018-11-09 11:31 | ULT ---
PREPROCEDURE DIAGNOSIS: Ascites POST PROCEDURE DIAGNOSIS: Same PROCEDURE: Ultrasound-guided paracentesis WINDOWS [employer] ADMINISTRATOR: Anders ANESTHESIA: 11 mL of buffered 1% lidocaine. SPECIMEN: 8 L of straw-colored fluid TECHNIQUE: Prior to the procedure, the risks and benefits of an ultrasound guided paracentesis were explained to the patient which consented fully to the procedure. The area of the largest fluid collection was seen in the left lower quadrant of the abdomen. This are a was prepped and draped in the usual sterile fashion. Lidocaine was used to anesthetize the skin and soft tissues down towards the peritoneal cavity. The p eritoneum was anesthetized. A small skin incision was made for passage of the Light [place] Afric[place] needle and catheter. This device was then placed using ultrasound guidance into the peritoneal cavity. The needle was removed after return of fluid. The catheter was then connected to multiple Vacutainer bottles. A total of 8 L was removed. No residual fluid is seen in this region of the peritoneal cavity. IMPRESSION: Status post successful ultrasound-guided paracentesis
[2018-11-09 11:59] VITALS: BP 110/65; TEMP 97.9
== END 2018-11-09 11:30 | disposition home or self-care (01) ==
LOC: ULT 10:12
PROVIDERS: ATTEND Internal Medicine
DX: K70.31 Alcoholic cirrhosis of liver with ascites (principal); K72.90 Hepatic failure, unspecified without coma; E03.9 Hypothyroidism, unspecified; E78.5 Hyperlipidemia, unspecified; E87.1 Hypo-osmolality and hyponatremia; F32.9 Major depressive disorder, single episode, unspecified; K42.9 Umbilical hernia without obstruction or gangrene; Z79.899 Other long term (current) drug therapy; Z87.891 Personal history of nicotine dependence
CPT/HCPCS: 49083; P9047

== ENCOUNTER 2018-11-16 09:47 | Day surgery (SDC) | payer MEDICARE ==
[2018-11-16] MEDS ORDERED: Sodium Bicarbonate 2.5 MEQ/5 ML VIAL ONE (09:58)
[2018-11-16] MEDS ORDERED: Albumin 25% 200 ML ONE (09:58)
--- NOTE | 2018-11-16 11:42 | ULT ---
Ultrasound-guided paracentesis: HISTORY: Cirrhosis and recurrent ascites. FINDINGS: Informed consent obtained prior to the procedure. Preprocedural imaging demonstrated intrap eritoneal free fluid. An area was marked in the left lower quadrant mid axillary line, and then meticulously prepped and dr aped in normal sterile fashion and anesthetized with 1% buffered lidocaine. With direct sonographic guidance, a 19-gauge needle and 5 Turkish Yueh catheter were advanced into the abdomen. After the return of fluid, the catheter was advanced, and the needle was removed. Approximately 4.8 L of dark ruthann-colored fluid was aspirated. The introducer sheath was removed, and hemostasis was achieved with direct pressure. A dry sterile dressing was placed. The patient tolerated the procedure well and without immediate complication. IMPRESSION: Technically successful ultrasound-guided paracentesis.
== END 2018-11-16 11:20 | disposition home or self-care (01) ==
LOC: ULT 09:47
PROVIDERS: ATTEND Internal Medicine
PROC: 0W9G3ZZ Drainage of Peritoneal Cavity, Percutaneous Approach (ICD-10-PCS; principal; 2018-11-16)
DX: K70.31 Alcoholic cirrhosis of liver with ascites (principal); E03.9 Hypothyroidism, unspecified; F32.9 Major depressive disorder, single episode, unspecified; E78.5 Hyperlipidemia, unspecified
CPT/HCPCS: 49083; P9047

== ENCOUNTER 2018-11-23 09:59 | Day surgery (SDC) | payer MEDICARE ==
[2018-11-23] MEDS ORDERED: Albumin 25% 200 ML ONE (10:22)
--- NOTE | 2018-11-23 12:14 | ULT ---
Ultrasound-guided paracentesis: 11/23/2018 HISTORY: Symptomatic ascites FINDINGS: Informed consent obtained prior to the procedure. Preprocedural imaging demonstrated signif icant ascites throughout the abdomen and pelvis. Right lower quadrantprepped and draped in normal sterile fashion and anesthetized with 1% buffered li docaine. With direct sonographic guidance, 5 Icelandic Yueh catheter is advanced into the ascites and removal of the stylet yielded ruthann-coloredfluid. 3.9 L were removed. The patient tolerated the procedure well. No postprocedural complications. IMPRESSION: Successful ultrasound-guided paracentesis yielding 3.9 L of yellow fluid.
[2018-11-23 12:22] VITALS: BP 103/61; TEMP 97.7
== END 2018-11-23 11:25 | disposition home or self-care (01) ==
LOC: ULT 09:59
PROVIDERS: ATTEND Internal Medicine
PROC: 0W9G3ZZ Drainage of Peritoneal Cavity, Percutaneous Approach (ICD-10-PCS; principal; 2018-11-23)
PROC: BW40ZZZ Ultrasonography of Abdomen (ICD-10-PCS; 2018-11-23)
DX: K70.31 Alcoholic cirrhosis of liver with ascites (principal); E03.9 Hypothyroidism, unspecified; F32.9 Major depressive disorder, single episode, unspecified; E78.5 Hyperlipidemia, unspecified; E87.1 Hypo-osmolality and hyponatremia; K72.90 Hepatic failure, unspecified without coma; Z87.891 Personal history of nicotine dependence
CPT/HCPCS: 49083; P9047

== ENCOUNTER 2018-11-30 09:50 | Day surgery (SDC) | payer MEDICARE ==
[2018-11-29 16:33] VITALS: BMI 20.2
[~2018-11-30 09:50] MED LIST changes: +Sodium Bicarbonate 2.5 MEQ/5 ML VIAL ONE
--- NOTE | 2018-11-30 11:21 | ULT ---
Ultrasound-guided paracentesis: 11/30/2018 HISTORY: Symptomatic ascites FINDINGS: Informed consent obtained prior to the procedure. Preprocedural imaging demonstrated signif icant ascites throughout the abdomen and pelvis. Left lower quadrantprepped and draped in normal sterile fashion and anesthetized with 1% buffered lid ocaine. With direct sonographic guidance, 5 Thai Yueh catheter is advanced into the ascites and removal of the stylet yielded ruthann-coloredfluid. 4.3 L were removed. The patient tolerated the procedure well. No postprocedural complications. IMPRESSION: Successful ultrasound-guided paracentesis yielding 4.3 L of yellow fluid.
== END 2018-11-30 11:15 | disposition home or self-care (01) ==
LOC: ULT 09:50
PROVIDERS: ATTEND Internal Medicine
PROC: 0W9G3ZZ Drainage of Peritoneal Cavity, Percutaneous Approach (ICD-10-PCS; principal; 2018-11-30)
DX: K70.31 Alcoholic cirrhosis of liver with ascites (principal); K72.90 Hepatic failure, unspecified without coma; K42.9 Umbilical hernia without obstruction or gangrene; E03.9 Hypothyroidism, unspecified; F32.9 Major depressive disorder, single episode, unspecified; E78.5 Hyperlipidemia, unspecified; Z87.891 Personal history of nicotine dependence; Z79.899 Other long term (current) drug therapy
CPT/HCPCS: 49083; P9047

== ENCOUNTER 2018-12-07 08:00 | Day surgery (SDC) | payer MEDICARE ==
[~2018-12-07 08:00] MED LIST changes: -Albumin 25% 200 ML ONE; +FLU VACC TS2019-20(65YR UP)/PF 180 MCG/0.5 ML SYRINGE IM ONE; -Sodium Bicarbonate 2.5 MEQ/5 ML VIAL ONE
[2018-12-07] MEDS ORDERED: Albumin 25% 200 ML ONE (08:11)
[2018-12-07] MEDS ORDERED: Sodium Bicarbonate 2.5 MEQ/5 ML VIAL ONE (08:12)
--- NOTE | 2018-12-07 09:39 | ULT ---
Ultrasound-guided paracentesis: HISTORY: Cirrhosis and recurrent ascites FINDINGS: Informed consent obtained prior to the procedure. Preprocedural imaging demonstrated intrap eritoneal free fluid. An area was marked in the left lower quadrant mid axillary line, and then meticulously prepped and dr aped in normal sterile fashion and anesthetized with 1% buffered lidocaine. With direct sonographic guidance, a 19-gauge needle and 5 Hebrew Yueh catheter were advanced into the abdomen. After the return of fluid, the catheter was advanced, and the needle was removed. Approximately 3.8 L of slightly cloudy orange-colored fluid was aspirated. The introducer sheath was removed, and hemostasis was achieved with direct pressure. A dry sterile dressing was placed. The patient tolerated the procedure well and without immediate complication. IMPRESSION: Technically successful ultrasound-guided paracentesis.
[2018-12-07 10:04] VITALS: BMI 20.6
== END 2018-12-07 09:50 | disposition home or self-care (01) ==
LOC: ULT 08:00
PROVIDERS: ATTEND Internal Medicine
PROC: 0W9G3ZZ Drainage of Peritoneal Cavity, Percutaneous Approach (ICD-10-PCS; principal; 2018-12-07)
DX: K70.31 Alcoholic cirrhosis of liver with ascites (principal); F10.188 Alcohol abuse with other alcohol-induced disorder; E78.5 Hyperlipidemia, unspecified; E03.9 Hypothyroidism, unspecified; F32.9 Major depressive disorder, single episode, unspecified; Z79.899 Other long term (current) drug therapy
CPT/HCPCS: 49083; 80053; 82248; 85025; 85610; P9047; 36415

== ENCOUNTER 2018-12-14 09:58 | Day surgery (SDC) | payer MEDICARE ==
[2018-12-13 15:31] VITALS: BMI 20.6
[2018-12-14] MEDS ORDERED: Albumin 25% 200 ML ONE (10:08)
[2018-12-14] MEDS ORDERED: Sodium Bicarbonate 2.5 MEQ/5 ML VIAL ONE (10:08)
--- NOTE | 2018-12-14 12:01 | ULT ---
Ultrasound-guided paracentesis: HISTORY: Symptomatic ascites FINDINGS: Informed consent obtained prior to the procedure. Preprocedural imaging demonstrated signif icant ascites throughout the abdomen and pelvis. Left lower quadrant prepped and draped in normal sterile fashion and anesthetized with 1% buffered li docaine. With direct sonographic guidance, 5 Greek Yueh catheter is advanced into the ascites and removal of the stylet yielded yellow fluid. 4.2 L were removed. The patient tolerated the procedure well. No postprocedural complications. IMPRESSION: Successful ultrasound-guided paracentesis yielding 4.2 L of yellow ascites.
[2018-12-14 13:16] VITALS: BP 91/56; TEMP 98
== END 2018-12-14 11:55 | disposition home or self-care (01) ==
LOC: ULT 09:58
PROVIDERS: ATTEND Internal Medicine
PROC: 0W9G3ZZ Drainage of Peritoneal Cavity, Percutaneous Approach (ICD-10-PCS; principal; 2018-12-14)
DX: K70.31 Alcoholic cirrhosis of liver with ascites (principal); K72.90 Hepatic failure, unspecified without coma; E03.9 Hypothyroidism, unspecified; E78.5 Hyperlipidemia, unspecified; E87.1 Hypo-osmolality and hyponatremia; F32.9 Major depressive disorder, single episode, unspecified; K42.9 Umbilical hernia without obstruction or gangrene; Z79.899 Other long term (current) drug therapy; Z87.891 Personal history of nicotine dependence
CPT/HCPCS: 49083; 80053; 82248; 85025; 85610; 85730; P9047; 36415

== ENCOUNTER 2018-12-21 10:09 | Day surgery (SDC) | payer MEDICARE ==
[2018-12-20 09:43] VITALS: BMI 22.6
[2018-12-21] MEDS ORDERED: Sodium Bicarbonate 2.5 MEQ/5 ML VIAL ONE (10:45)
[2018-12-21] MEDS ORDERED: Albumin 25% 200 ML ONE (10:45)
--- NOTE | 2018-12-21 11:59 | ULT ---
ULTRASOUND GUIDED ABDOMINAL PARACENTESIS: INDICATIONS: Recurrent ascites. FINDINGS: Removed 4 L of yellowish-cloudy acidic fluid from the left lower quadrant. PROCEDURE IN DETAIL: Ultrasound showed moderate volume ascites. Left lower quadrant is chosen for puncture. The skin is pr epped and draped in a sterile manner. Local anesthesia administered with Lidocaine and bicarbonate. A tiny skin sri is made with a scalpel. A Mass Vectoreh catheter and needle were inserted into the ascites of the left lower quadrant using ultrasound guidance. The catheter was attached to suction drainage. Rem augusto 4 L of acidic fluid. Post procedure ultrasound showed minimal residual ascites. POS: OFF
[2018-12-21 12:10] VITALS: BP 99/57; TEMP 97.7
== END 2018-12-21 11:40 | disposition home or self-care (01) ==
LOC: ULT 10:09
PROVIDERS: ATTEND Internal Medicine
DX: K70.31 Alcoholic cirrhosis of liver with ascites (principal); E03.9 Hypothyroidism, unspecified; E78.5 Hyperlipidemia, unspecified; F32.9 Major depressive disorder, single episode, unspecified; K42.9 Umbilical hernia without obstruction or gangrene; K72.90 Hepatic failure, unspecified without coma; Z79.899 Other long term (current) drug therapy; Z87.891 Personal history of nicotine dependence
CPT/HCPCS: 49083; 80053; 82248; 85025; 85610; P9047; 36415

== ENCOUNTER 2019-01-11 10:03 | Day surgery (SDC) | payer MEDICARE ==
[2019-01-10 13:42] VITALS: BMI 22.6
[2019-01-11] MEDS ORDERED: Albumin 25% 200 ML ONE (10:09)
[2019-01-11] MEDS ORDERED: Sodium Bicarbonate 2.5 MEQ/5 ML VIAL ONE (10:09)
--- NOTE | 2019-01-11 11:44 | ULT ---
Ultrasound-guided paracentesis: HISTORY: Cirrhosis and ascites. FINDINGS: Informed consent obtained prior to the procedure. Preprocedural imaging demonstrated intrap eritoneal free fluid. An area was marked in the left lower quadrant mid axillary line, and then meticulously prepped and dr aped in normal sterile fashion and anesthetized with 1% buffered lidocaine. With direct sonographic guidance, a 19-gauge needle and 5 Chinese Yueh catheter were advanced into the abdomen. After the return of fluid, the catheter was advanced, and the needle was removed. Approximately 3 L of ruthann-colored fluid was aspirated. The introducer sheath was removed, and hemost asis was achieved with direct pressure. A dry sterile dressing was placed. The patient tolerated the procedure well and without immediate complication. IMPRESSION: Technically successful ultrasound-guided paracentesis.
[2019-01-11 12:06] VITALS: BP 96/61; TEMP 98.3
== END 2019-01-11 11:15 | disposition home or self-care (01) ==
LOC: ULT 10:03
PROVIDERS: ATTEND Internal Medicine
PROC: 0W9G3ZZ Drainage of Peritoneal Cavity, Percutaneous Approach (ICD-10-PCS; principal; 2019-01-11)
DX: K70.31 Alcoholic cirrhosis of liver with ascites (principal); K42.9 Umbilical hernia without obstruction or gangrene; E03.9 Hypothyroidism, unspecified; E78.5 Hyperlipidemia, unspecified; F32.9 Major depressive disorder, single episode, unspecified; Z87.891 Personal history of nicotine dependence; Z79.899 Other long term (current) drug therapy
CPT/HCPCS: 49083; P9047; 36415; 80053; 82248; 85025; 85610

== ENCOUNTER 2019-01-18 09:51 | Day surgery (SDC) | payer MEDICARE ==
[2019-01-17 08:54] VITALS: BMI 22.6
[2019-01-18] MEDS ORDERED: Albumin 25% 200 ML ONE (10:10)
--- NOTE | 2019-01-18 10:34 | ULT ---
Limited abdominal ultrasound: 01/18/2019 HISTORY: Symptomatic ascites FINDINGS: The patient presented for routine scheduled paracentesis. The preprocedural imaging demonst rates very small volume ascites within the abdomen/pelvis. The patient did not want to undergo paracentesis at this time secondary to an absence of symptoms. He stated that he would return next we ek to be evaluated for potential paracentesis. IMPRESSION: Small volume ascites within the abdomen and pelvis.
== END 2019-01-18 10:27 | disposition home or self-care (01) ==
LOC: ULT 09:51
PROVIDERS: ATTEND Internal Medicine
DX: K70.31 Alcoholic cirrhosis of liver with ascites (principal); Z53.29 Procedure and treatment not carried out because of patient's decision for other reasons
CPT/HCPCS: 76705; P9047; 36415; 80053; 82248; 85025; 85610

== ENCOUNTER 2019-01-25 09:56 | Day surgery (SDC) | payer MEDICARE ==
[2019-01-25] MEDS ORDERED: Sodium Bicarbonate 2.5 MEQ/5 ML VIAL ONE (09:59)
[2019-01-25] MEDS ORDERED: Albumin 25% 100 ML ONE (09:59)
--- NOTE | 2019-01-25 10:42 | ULT ---
EXAM: US Abdomen Limited CLINICAL HISTORY: Evaluate for ascites. Consider paracentesis. COMPARISON: None. FINDINGS: Targeted sonographic imaging of the abdomen does not demonstrate any significant ascites. IMPRESSION: No significant ascites.
== END 2019-01-25 10:20 | disposition home or self-care (01) ==
LOC: ULT 09:56
PROVIDERS: ATTEND Internal Medicine
DX: R18.8 Other ascites (principal)
CPT/HCPCS: 76705; 80053; 82248; 85025; 85610; P9047; 36415

== ENCOUNTER 2019-02-08 09:58 | Day surgery (SDC) | payer MEDICARE ==
--- NOTE | 2019-02-08 10:43 | ULT ---
Limited abdominal ultrasound-ascites search: 02/08/2019 HISTORY: Evaluate for ascites FINDINGS: There is no significant ascites noted within the right upper quadrant, right lower quadrant , left lower quadrant, or left upper quadrant. Minimal/trace ascites noted in the left lower quadrant. IMPRESSION: No significant ascites seen.
== END 2019-02-08 10:13 | disposition home or self-care (01) ==
LOC: ULT 09:58
PROVIDERS: ATTEND Internal Medicine
DX: K70.30 Alcoholic cirrhosis of liver without ascites (principal); E03.9 Hypothyroidism, unspecified; F32.9 Major depressive disorder, single episode, unspecified; E78.5 Hyperlipidemia, unspecified; E07.9 Disorder of thyroid, unspecified; K42.9 Umbilical hernia without obstruction or gangrene; Z87.891 Personal history of nicotine dependence; Z79.899 Other long term (current) drug therapy
CPT/HCPCS: 36415; 76705; 80053; 82248; 85025; 85610

== ENCOUNTER 2019-03-13 14:05 | Outpatient (CLI) | payer MEDICARE ==
--- NOTE | 2019-03-13 14:22 | RAD ---
EXAM: XR Chest Pa Lat STANDARD PROVIDED CLINICAL HISTORY: Bronchitis COMPARISON: 08/17/2018 FINDINGS: Cardiac and mediastinal silhouette is unchanged in appearance. Development of moderate right pleural fluid with adjacent atelectasis and/or infiltrate. Left lung appears clear. No evidence for pneumothorax. IMPRESSION: Moderate right pleural fluid with adjacent atelectasis and/or infiltrate.
== END 2019-03-13 14:06 | disposition home or self-care (01) ==
LOC: SCSRAD 14:05
PROVIDERS: ATTEND Nurse Practitioner Family
DX: J40 Bronchitis, not specified as acute or chronic (principal)
CPT/HCPCS: 71046

== ENCOUNTER 2019-03-28 10:34 | Outpatient (CLI) | payer MEDICARE ==
--- NOTE | 2019-03-28 11:32 | RAD ---
CHEST 2 VIEWS: Date: 03/28/19 HISTORY: R93.89, cough for 1 month. COMPARISON: 03/13/2019. FINDINGS: Persistent pleural and parenchymal changes in the right base, stable. Heart size is normal. The left lung is clear. IMPRESSION: Stable pleural and parenchymal changes in the right base. No new process. POS: OFF
== END 2019-03-28 10:35 | disposition home or self-care (01) ==
LOC: SCSRAD 10:34
PROVIDERS: ATTEND Family Medicine
DX: R93.89 Abnormal findings on diagnostic imaging of other specified body structures (principal)
CPT/HCPCS: 71046

== ENCOUNTER 2019-04-24 11:31 | Outpatient (CLI) | payer MEDICARE ==
--- NOTE | 2019-04-24 13:39 | RAD ---
PA AND LATERAL CHEST: 04/24/19 HISTORY: Follow-up pleural effusion. COMPARISON: 03/28/19 study. Heart size is within normal limits. The right sided effusion appears somewhat increased as compared t o the prior examination. Left lung remains clear. IMPRESSION: Slight increase in size to the right sided pleural effusion. POS: [facility]
== END 2019-04-24 11:32 | disposition home or self-care (01) ==
LOC: SCSRAD 11:31
PROVIDERS: ATTEND Family Medicine
DX: R93.89 Abnormal findings on diagnostic imaging of other specified body structures (principal); J90 Pleural effusion, not elsewhere classified
CPT/HCPCS: 71046

== ENCOUNTER 2019-05-10 08:19 | Day surgery (SDC) | payer MEDICARE ==
[2019-05-09 09:55] VITALS: BMI 23.3
[2019-05-10] MEDS ORDERED: PROPOFOL 200 MG/20 ML VIAL ONE (10:27)
--- NOTE | 2019-05-10 11:09 | OP ---
DATE OF PROCEDURE: 05/10/2019 PROCEDURE PERFORMED: Esophagogastroduodenoscopy with biopsy. INDICATIONS FOR PROCEDURE: Screening for esophageal varices with a prior diagnosis of cirrhosis, dysphagia. DESCRIPTION OF PROCEDURE: After the risks and benefits of the procedure were explained to the patient, including risks of bleeding, infection, perforation, reactions to anesthesia, aspiration, and/or pain, informed consent was obtained. The patient was then taken to the endoscopy suite where he was placed in the left lateral decubitus position followed by introduction of deep sedation via propofol and anesthesia support. Once adequate sedation was achieved, the standard gastroscope was introduced into the mouth with intubation of the esophagus, stomach, and the proximal small intestines with the findings listed below. The patient tolerated the procedure well with no immediate perioperative complications. Upon conclusion of the procedure, all equipment was removed from the patient and he was transferred to Day Stay in satisfactory condition. EGD FINDINGS: Esophagus: Normal-appearing mucosa was seen in the proximal and mid esophagus; however, in the distal esophagus, large (grade 2) esophageal varices were seen in the distal esophagus that did not exhibit any high-risk stigmata of bleeding or any evidence of active/recent bleeding. There was also 2 small erosions seen at the gastroesophageal junction, extending proximally around 3 to 4 mm in size, 3 mm in length, but not extending between folds within the esophagus, consistent with reflux esophagitis. There was no evidence of ulcerations, mass lesions, or active/recent bleeding seen during this portion of the exam. Biopsies were not taken from the distal esophagus or proximal esophagus given the higher likelihood of acid reflux causing dysphagia and the presence of esophageal varices and increased risk of bleeding. Stomach: Tygc-[id number] increased mucosal erythema was seen throughout the entire stomach in a mosaic type pattern, that was mildly friable to the passage of the endoscope. Within the gastric antrum, small petechiae like clots were seen with no underlying abnormalities. There was no evidence of gastric varices on gastric retroflexion. Otherwise, there was no evidence of erosions, ulcerations, mass lesions, or active/recent bleeding. Duodenum: A 5 mm cratered ulceration was seen along the superior/anterior wall of the duodenal bulb, that was clean based and did not exhibit any high-risk stigmata of bleeding, (no red spots or visible vessel). There was some mildly increased mucosal erythema surrounding the ulceration itself as well as some mucosal edema. Biopsies were taken from around the ulceration and placed in a specimen jar for further evaluation. Random gastric biopsies were also taken on the way out for evaluation of H pylori status. Otherwise, normal-appearing mucosa was then seen within the duodenal sweep as well as within the second portion of the duodenum. There was no evidence of mass lesions or active/recent bleeding. IMPRESSION: 1. Large (grade 2) distal esophageal varices without any high-risk stigmata of bleeding (unchanged from esophagogastroduodenoscopy performed in 06/2017). 2. No evidence of gastric varices. 3. [id number] portal hypertensive gastropathy. 4. LA grade A reflux-mediated erosive esophagitis. 5. A 5 mm cratered ulceration in the duodenal bulb, concerning for Helicobacter pylori versus nonsteroidal anti-inflammatory drug use, now status post biopsies. RECOMMENDATIONS: 1. We will follow up on the biopsy results with repeat upper endoscopy based on the biopsy results. 2. Would consider starting the patient on nonselective beta-blockade given the presence of large esophageal varices, but with relative hypotension and lack of gear changer the last few years, it would need careful monitoring. Will confer with Transplant service. 3. Would place the patient on PPI 40 mg daily in light of duodenal ulceration. 4. Would avoid any NSAIDs and treat for H pylori if positive. 5. Once the patient is placed on nonselective beta-blockade, further screening of the esophageal varices is no longer indicated. 6. Follow up with Transplant Service as scheduled. Job ID: [id number] [id number]
== END 2019-05-10 11:18 | disposition home or self-care (01) ==
LOC: SDC 08:19
PROVIDERS: ATTEND Internal Medicine
PROC: 0DB98ZX Excision of Duodenum, Via Natural or Artificial Opening Endoscopic, Diagnostic (ICD-10-PCS; principal; 2019-05-10)
PROC: 0DB68ZX Excision of Stomach, Via Natural or Artificial Opening Endoscopic, Diagnostic (ICD-10-PCS; 2019-05-10)
DX: K70.31 Alcoholic cirrhosis of liver with ascites (principal); I85.10 Secondary esophageal varices without bleeding; K72.90 Hepatic failure, unspecified without coma; K29.80 Duodenitis without bleeding; K29.50 Unspecified chronic gastritis without bleeding; K22.10 Ulcer of esophagus without bleeding; K76.6 Portal hypertension; K31.89 Other diseases of stomach and duodenum; K21.0 Gastro-esophageal reflux disease with esophagitis; K26.9 Duodenal ulcer, unspecified as acute or chronic, without hemorrhage or perforation; E07.9 Disorder of thyroid, unspecified; Z87.891 Personal history of nicotine dependence; Z79.899 Other long term (current) drug therapy
CPT/HCPCS: 88305; 88312; J2704

== ENCOUNTER 2019-08-16 07:54 | Day surgery (SDC) | payer MEDICARE ==
[2019-08-15 09:27] VITALS: BMI 22.5
[2019-08-16] MEDS ORDERED: Sodium Bicarbonate 2.5 MEQ/5 ML VIAL ONE (08:02)
[2019-08-16] MEDS ORDERED: Lidocaine 1% PF 5 ML VIAL ONE (08:02)
--- NOTE | 2019-08-16 09:10 | ULT ---
Exam: Ultrasound guided paracentesis HISTORY: Ascites COMPARISON: 01/11/2019 FINDINGS: Successful ultrasound-guided paracentesis. Total of 2400 mL of yellow color ascites was asp irated. TECHNIQUE: Consent obtained reformatory ultrasound-guided paracentesis. Right lower quadrant was deem ed appropriate. Skin was prepped and draped in a sterile fashion. 1% lidocaine, buffered with sodium bicarbonate was used for local anesthesia. Under ultrasound guidance, a 5 Cuban 7 cm Yueh cat heter is advanced in the peritoneal space. A total of 2400 mL of yellow color ascites was aspirated. No immediate or postprocedural complications IMPRESSION: Successful ultrasound-guided paracentesis.
[2019-08-16 09:33] VITALS: BP 99/61; TEMP 98.3
== END 2019-08-16 09:10 | disposition home or self-care (01) ==
LOC: ULT 07:54
PROVIDERS: ATTEND Internal Medicine
PROC: 0W9G3ZZ Drainage of Peritoneal Cavity, Percutaneous Approach (ICD-10-PCS; principal; 2019-08-16)
DX: K70.31 Alcoholic cirrhosis of liver with ascites (principal); K72.90 Hepatic failure, unspecified without coma; E03.9 Hypothyroidism, unspecified; K21.9 Gastro-esophageal reflux disease without esophagitis; F32.9 Major depressive disorder, single episode, unspecified; E78.5 Hyperlipidemia, unspecified; Z79.899 Other long term (current) drug therapy
CPT/HCPCS: 49083; J2001

== ENCOUNTER 2019-09-13 07:54 | Day surgery (SDC) | payer MEDICARE ==
[2019-09-12 12:50] VITALS: BMI 22.5
[2019-09-13] MEDS ORDERED: Lidocaine 1% PF 5 ML VIAL ONE (08:12)
[2019-09-13] MEDS ORDERED: Sodium Bicarbonate 2.5 MEQ/5 ML VIAL ONE (08:12)
--- NOTE | 2019-09-13 09:05 | ULT ---
Sonographic guided paracentesis HISTORY: Recurrent ascites. FINDINGS: After explaining procedure and answering all questions, sonographic survey showed a large a mount of free fluid. Sterile technique, buffered local anesthesia, sonographic guidance, and a right lateral approach were used to carefully advance a 19-gauge Yueh needle and catheter into the free fluid. Catheter was left to drain a total volume of 4.2 L slightly cloudy yellow liquid. Catheter was removed with minimal fluid remaining. Patient tolerated the procedure well and was dismi ssed in good condition. IMPRESSION : Technically successful sonographic guided paracentesis. 4.2 L.
[2019-09-13 09:16] VITALS: BP 111/63; TEMP 97.5
== END 2019-09-13 09:00 | disposition home or self-care (01) ==
LOC: ULT 07:54
PROVIDERS: ATTEND Internal Medicine
PROC: 0W9G3ZZ Drainage of Peritoneal Cavity, Percutaneous Approach (ICD-10-PCS; principal; 2019-09-13)
DX: K74.60 Unspecified cirrhosis of liver (principal); I85.10 Secondary esophageal varices without bleeding; R18.8 Other ascites; E03.9 Hypothyroidism, unspecified; E78.5 Hyperlipidemia, unspecified; F32.9 Major depressive disorder, single episode, unspecified; K21.9 Gastro-esophageal reflux disease without esophagitis
CPT/HCPCS: 49083; J2001

== ENCOUNTER 2019-09-28 08:25 | Day surgery (SDC) | payer MEDICARE ==
[2019-09-27 10:29] VITALS: BMI 22.5
--- NOTE | 2019-09-28 09:43 | ULT ---
Exam: Ultrasound guided paracentesis HISTORY: Ascites COMPARISON: 09/13/2019 FINDINGS: Successful ultrasound-guided paracentesis. Total of 2700 mL of yellow color ascites was asp irated. TECHNIQUE: Consent obtained reformatory ultrasound-guided paracentesis. Left lower quadrantwas deemed appropriate. Skin was prepped and draped in a sterile fashion. 1% lidocaine, buffered with sodium bicarbonate was used for local anesthesia. Under ultrasound guidance, a 5 Tajik 7 cm OrSenseeh catheter i s advanced in the peritoneal space. A total of 2700 mL of yellow color ascites was aspirated. No immediate or postprocedural complications IMPRESSION: Successful ultrasound-guided paracentesis.
[2019-09-28 09:52] VITALS: BP 96/62; TEMP 97.7
== END 2019-09-28 09:16 | disposition home or self-care (01) ==
LOC: ULT 08:25
PROVIDERS: ATTEND Internal Medicine Gastroenterology
PROC: 0W9G3ZZ Drainage of Peritoneal Cavity, Percutaneous Approach (ICD-10-PCS; principal; 2019-09-28)
DX: K70.31 Alcoholic cirrhosis of liver with ascites (principal); K72.90 Hepatic failure, unspecified without coma; F32.9 Major depressive disorder, single episode, unspecified; E03.9 Hypothyroidism, unspecified; Z79.899 Other long term (current) drug therapy
CPT/HCPCS: 49083

== ENCOUNTER 2019-10-10 08:34 | Outpatient (CLI) | payer MEDICARE ==
--- NOTE | 2019-10-10 08:57 | RAD ---
EXAM: Chest 2 views: HISTORY: Cough for 2 months COMPARISON: 04/24/2019 FINDINGS: There is a normal-sized cardiomediastinal silhouette. There is stable elevation the right hemidiaphr agm. There is a moderate right pleural effusion. Fullness is seen in the right hilar region. The bones are unremarkable. IMPRESSION: Stable right pleural effusion
== END 2019-10-10 08:35 | disposition home or self-care (01) ==
LOC: SCSRAD 08:34
PROVIDERS: ATTEND Family Medicine
DX: J90 Pleural effusion, not elsewhere classified (principal)
CPT/HCPCS: 71046

== ENCOUNTER 2019-11-08 08:27 | Day surgery (SDC) | payer MEDICARE ==
[2019-11-08] MEDS ORDERED: Albumin 25% 200 ML ONE (08:52)
[2019-11-08] MEDS ORDERED: Sodium Bicarbonate 2.5 MEQ/5 ML VIAL ONE (08:52)
[2019-11-08] MEDS ORDERED: Lidocaine 1% PF 5 ML VIAL ONE (08:52)
--- NOTE | 2019-11-08 09:24 | ULT ---
Ultrasound-guided paracentesis: HISTORY: Cirrhosis and recurrent ascites FINDINGS: Informed consent obtained prior to the procedure. Preprocedural imaging demonstrated intrap eritoneal free fluid. An area was marked in the right mid abdomen in the mid axillary line, and then meticulously prepped a nd draped in normal sterile fashion and anesthetized with 1% buffered lidocaine. With direct sonographic guidance, a 19-gauge needle and 5 Paraguayan Yueh catheter were advanced into the abdomen. After the return of fluid, the catheter was advanced, and the needle was removed. Approximately 1.8 L of clear straw-colored fluid was aspirated. The introducer sheath was removed, a nd hemostasis was achieved with direct pressure. A dry sterile dressing was placed. The patient tolerated the procedure well and without immediate complication. IMPRESSION: Technically successful ultrasound-guided paracentesis.
[2019-11-08 09:32] VITALS: BMI 23.6
[2019-11-08 09:33] VITALS: BP 104/63; TEMP 98.1
== END 2019-11-08 09:25 | disposition home or self-care (01) ==
LOC: ULT 08:27
PROVIDERS: ATTEND Internal Medicine
PROC: 0W9G3ZZ Drainage of Peritoneal Cavity, Percutaneous Approach (ICD-10-PCS; principal; 2019-11-08)
DX: K74.60 Unspecified cirrhosis of liver (principal); I85.10 Secondary esophageal varices without bleeding; R18.8 Other ascites; E03.9 Hypothyroidism, unspecified; K21.9 Gastro-esophageal reflux disease without esophagitis; E78.5 Hyperlipidemia, unspecified; F32.9 Major depressive disorder, single episode, unspecified
CPT/HCPCS: 49083; P9047

== ENCOUNTER 2019-11-22 07:51 | Day surgery (SDC) | payer MEDICARE ==
[2019-11-21 12:56] VITALS: BMI 23.1
[2019-11-22] MEDS ORDERED: Albumin 25% 200 ML ONE (08:09)
[2019-11-22] MEDS ORDERED: Sodium Bicarbonate 2.5 MEQ/5 ML VIAL ONE (08:09)
[2019-11-22] MEDS ORDERED: Lidocaine 1% PF 5 ML VIAL ONE (08:09)
--- NOTE | 2019-11-22 09:28 | ULT ---
Ultrasound-guided paracentesis: HISTORY: Cirrhosis and recurrent ascites FINDINGS: Informed consent obtained prior to the procedure. Preprocedural imaging demonstrated intrap eritoneal free fluid. An area was marked in the right mid abdomen in the mid axillary line, and then meticulously prepped a nd draped in normal sterile fashion and anesthetized with 1% buffered lidocaine. With direct sonographic guidance, a 19-gauge needle and 5 [place] Islander Yueh catheter were advanced into the abdomen. After the return of fluid, the catheter was advanced, and the needle was removed. Approximately 1.9 L of clear straw-colored fluid was aspirated. The introducer sheath was removed, a nd hemostasis was achieved with direct pressure. A dry sterile dressing was placed. The patient tolerated the procedure well and without immediate complication. IMPRESSION: Technically successful ultrasound-guided paracentesis.
[2019-11-22 09:50] VITALS: BP 99/55; TEMP 98.2
== END 2019-11-22 09:15 | disposition home or self-care (01) ==
LOC: ULT 07:51
PROVIDERS: ATTEND Internal Medicine
PROC: 0W9G3ZZ Drainage of Peritoneal Cavity, Percutaneous Approach (ICD-10-PCS; principal; 2019-11-22)
PROC: BW40ZZZ Ultrasonography of Abdomen (ICD-10-PCS; 2019-11-22)
DX: K70.31 Alcoholic cirrhosis of liver with ascites (principal); E03.9 Hypothyroidism, unspecified; E78.5 Hyperlipidemia, unspecified; F32.9 Major depressive disorder, single episode, unspecified; K21.9 Gastro-esophageal reflux disease without esophagitis; Z79.899 Other long term (current) drug therapy
CPT/HCPCS: 49083; P9047

== ENCOUNTER 2019-12-06 08:12 | Day surgery (SDC) | payer MEDICARE ==
[2019-12-06] MEDS ORDERED: Sodium Bicarbonate 2.5 MEQ/5 ML VIAL ONE (08:20)
[2019-12-06] MEDS ORDERED: Lidocaine 1% PF 5 ML VIAL ONE (08:20)
[2019-12-06] MEDS ORDERED: Albumin 25% 200 ML ONE ×2 (09:07→09:55)
[2019-12-06 10:13] VITALS: BMI 22.5
[2019-12-06 10:34] VITALS: BP 126/41; TEMP 98.6
--- NOTE | 2019-12-06 18:46 | ULT ---
ULTRASOUND GUIDED PARACENTESIS: 12/06/19 HISTORY: Cirrhosis and recurrent ascites. TECHNIQUE: After informed consent was obtained, the patient was placed on the sonography table in the supine pos ition. Limited sonographic evaluation of the abdomen was performed. An area in the mid axillary line right upper quadrant was marked and then meticulously prepped and draped in the usual sterile fashion . Skin and subcutaneous tissues were infiltrated with buffered 1% lidocaine for local anesthesia. Sma ll skin incision was made. Utilizing concurrent real time ultrasound guidance, a 19 gauge iROKO Partnerseh needle with 5 Mexican catheter wer e advanced into the abdomen. After return of fluid, the catheter was advanced, and needle was removed . Approximately 2.2 mL of clear straw colored fluid was aspirated. Catheter was removed and hemostasi s was achieved with direct pressure. IMPRESSION: Technically successful ultrasound guided paracentesis. POS: OFF
== END 2019-12-06 09:50 | disposition home or self-care (01) ==
LOC: ULT 08:12
PROVIDERS: ATTEND Internal Medicine
PROC: 0W9G3ZZ Drainage of Peritoneal Cavity, Percutaneous Approach (ICD-10-PCS; principal; 2019-12-06)
DX: K74.60 Unspecified cirrhosis of liver (principal); I85.10 Secondary esophageal varices without bleeding; R18.8 Other ascites; E03.9 Hypothyroidism, unspecified; E78.5 Hyperlipidemia, unspecified; F32.9 Major depressive disorder, single episode, unspecified; K21.9 Gastro-esophageal reflux disease without esophagitis
CPT/HCPCS: 49083; P9047

== ENCOUNTER 2019-12-07 10:18 | Day surgery (SDC) | payer MEDICARE ==
--- NOTE | 2019-12-07 11:40 | ULT ---
Exam: Ultrasound guided thoracentesis HISTORY: Right pleural effusion. Request is made to obtain pleural fluid for diagnosis COMPARISON: None FINDINGS: Successful right sided thoracentesis. A total of 2 L of yellow color pleural fluid was kofi george. Post procedure radiograph was performed TECHNIQUE: Consent obtained to perform a right-sided thoracentesis with ultrasound guidance. Patient' s posterior right hemithorax was prepped and draped in a sterile fashion. 1% lidocaine, buffered with sodium bicarbonate was used for local anesthesia. Under sonographic guidance, a 5 Kinyarwanda VTMeh ca theter is advanced in the pleural space. Total of 2 L of yellow color ascites was removed. Patient tolerated the procedure well. No immediate or postprocedural complications IMPRESSION: Successful ultrasound-guided right-sided thoracentesis.
--- NOTE | 2019-12-07 11:50 | RAD ---
EXAM: XR Chest Insp/Exp PROVIDED CLINICAL HISTORY: Patient with cirrhosis, ascites, and large right pleural effusion. Post right thoracentesis. COMPARISON: Chest x-ray on 12/04/2019 FINDINGS: There is a moderate-sized right pleural effusion which has decreased when compared to prior exam. Ple ural fluid does persist at the right lung base. No obvious pneumothorax is visualized. Left lung is clear. Vascular calcifications are seen in the thoracic aorta. Cardiac silhouette and pulmonary vascu lature are within normal limits. No other interval change. IMPRESSION: [id number] size right pleural effusion, but the amount of pleural fluid has diminished compare d to prior exam likely related to interval thoracentesis. No pneumothorax is appreciated.
[2019-12-07 12:44] VITALS: BMI 23.7
[2019-12-07 12:45] VITALS: BP 104/54; TEMP 98.5
[2019-12-07 13:15] LABS: RBC Count-Automated (BF) 765 /cu.mm; WBC/Nucleated-Auto (BF) 547 uL
[2019-12-07 13:19] LABS: BF Color Yellow; Body Fluid Source Pleural Fluid; Clarity Hazy (Clear); Tube # EDTA
[2019-12-07 13:23] LABS: BF Segmented Neutrophils 1 %; Cell Count Non Hematic 72 %; Lymphocytes 27 %
== END 2019-12-07 11:30 | disposition home or self-care (01) ==
LOC: ULT 10:18
PROVIDERS: ATTEND Internal Medicine Critical Care Medicine
PROC: 0W993ZZ Drainage of Right Pleural Cavity, Percutaneous Approach (ICD-10-PCS; principal; 2019-12-07)
PROC: BB4BZZZ Ultrasonography of Pleura (ICD-10-PCS; 2019-12-07)
DX: J90 Pleural effusion, not elsewhere classified (principal); E88.01 Alpha-1-antitrypsin deficiency; K70.30 Alcoholic cirrhosis of liver without ascites; E03.9 Hypothyroidism, unspecified; E87.1 Hypo-osmolality and hyponatremia; I45.10 Unspecified right bundle-branch block; I10 Essential (primary) hypertension; E78.5 Hyperlipidemia, unspecified; F32.9 Major depressive disorder, single episode, unspecified; K21.9 Gastro-esophageal reflux disease without esophagitis; Z86.010 Personal history of colon polyps; Z87.891 Personal history of nicotine dependence; Z79.899 Other long term (current) drug therapy
CPT/HCPCS: 71045; 76942; 83615; 84157; 85060; 87070; 87205; 89051

== ENCOUNTER 2019-12-20 08:27 | Day surgery (SDC) | payer MEDICARE ==
[2019-12-19 13:25] VITALS: BMI 22.5
[2019-12-20] MEDS ORDERED: Sodium Bicarbonate 2.5 MEQ/5 ML VIAL ONE (08:53)
[2019-12-20] MEDS ORDERED: Albumin 25% 200 ML ONE (08:53)
[2019-12-20] MEDS ORDERED: Lidocaine 1% PF 5 ML VIAL ONE (08:53)
[2019-12-20 10:22] VITALS: BP 104/61; TEMP 98.3
--- NOTE | 2019-12-20 11:27 | ULT ---
Paracentesis sonographic guided HISTORY: Symptomatic ascites. FINDINGS: After explaining the procedure and answering all questions, sonographic survey showed a lar ge amount of free fluid throughout the abdomen. Right pleural fluid was also seen. Sterile technique, buffered local anesthesia, sonographic guidance, and a right lateral approach were used to carefully advance a 19-gauge Yueh needle and catheter into the free fluid. Catheter was left to drain a total volume of 4.5 L clear yellow liquid. Catheter was removed with minimal fluid remaining. Patient tolerated the procedure well and was dismi ssed in good condition. IMPRESSION : Technically successful sonographic guided paracentesis. 4.5 L. Large amount of right pleural fluid incidentally noted.
== END 2019-12-20 10:00 | disposition home or self-care (01) ==
LOC: ULT 08:27
PROVIDERS: ATTEND Internal Medicine
PROC: 0W9G3ZZ Drainage of Peritoneal Cavity, Percutaneous Approach (ICD-10-PCS; principal; 2019-12-20)
PROC: BW40ZZZ Ultrasonography of Abdomen (ICD-10-PCS; 2019-12-20)
DX: K70.31 Alcoholic cirrhosis of liver with ascites (principal); J90 Pleural effusion, not elsewhere classified; K72.90 Hepatic failure, unspecified without coma; E03.9 Hypothyroidism, unspecified; E78.5 Hyperlipidemia, unspecified; F32.9 Major depressive disorder, single episode, unspecified; K21.9 Gastro-esophageal reflux disease without esophagitis; Z87.891 Personal history of nicotine dependence; Z79.899 Other long term (current) drug therapy
CPT/HCPCS: 49083; P9047

== ENCOUNTER 2020-01-03 07:54 | Day surgery (SDC) | payer MEDICARE ==
[2020-01-02 11:44] VITALS: BMI 22.5
[2020-01-03] MEDS ORDERED: Lidocaine 1% PF 5 ML VIAL ONE (09:18)
[2020-01-03] MEDS ORDERED: Albumin 25% 100 ML ONE (09:18)
--- NOTE | 2020-01-03 10:36 | ULT ---
US Paracentesis with Imaging History: Ascites Comparison: Paracentesis December 20, 2019 Findings: Patient was brought to the ultrasound suite. All questions were answered. The patient's rig ht lower quadrant was prepped and draped in normal sterile fashion. After adequate local anesthesia with lidocaine, the peritoneal space was accessed with 5 Chinese catheter. 2.9 L of straw-colored flui d was removed. Patient tolerated the procedure well without complication. Impression: Technically successful ultrasound-guided paracentesis.
[2020-01-03 12:15] VITALS: BP 113/59; TEMP 97.8
== END 2020-01-03 10:25 | disposition home or self-care (01) ==
LOC: ULT 07:54
PROVIDERS: ATTEND Internal Medicine
PROC: 0W9G3ZZ Drainage of Peritoneal Cavity, Percutaneous Approach (ICD-10-PCS; principal; 2020-01-03)
DX: K74.60 Unspecified cirrhosis of liver (principal); I85.10 Secondary esophageal varices without bleeding; R18.8 Other ascites; E03.9 Hypothyroidism, unspecified; E78.5 Hyperlipidemia, unspecified; F32.9 Major depressive disorder, single episode, unspecified; K21.9 Gastro-esophageal reflux disease without esophagitis; Z79.899 Other long term (current) drug therapy
CPT/HCPCS: 49083; P9047

== ENCOUNTER 2020-01-17 08:00 | Day surgery (SDC) | payer MEDICARE ==
[2020-01-16 14:10] VITALS: BMI 22.5
[2020-01-17] MEDS ORDERED: Lidocaine 1% PF 5 ML VIAL ONE ×2 (08:50→08:51)
[2020-01-17] MEDS ORDERED: Sodium Bicarbonate 2.5 MEQ/5 ML VIAL ONE ×2 (08:50→08:51)
[2020-01-17] MEDS ORDERED: Albumin 25% 25 GM/100 ML BOT ONE (08:50)
[2020-01-17] MEDS ORDERED: Albumin 25% 200 ML ONE (08:51)
[2020-01-17] MEDS ORDERED: FLU VACC QS2020-21(65YR UP)/PF 240 MCG/0.7 ML SYRINGE IM ONE (09:00)
[2020-01-17 10:17] VITALS: BP 103/60; TEMP 98.1
--- NOTE | 2020-01-17 12:20 | ULT ---
Ultrasound-guided paracentesis: HISTORY: Cirrhosis and recurrent ascites. FINDINGS: Informed consent obtained prior to the procedure. Preprocedural imaging demonstrated intrap eritoneal free fluid. An area was marked in the right mid abdomen in the mid axillary line, and then meticulously prepped a nd draped in normal sterile fashion and anesthetized with 1% buffered lidocaine. With direct sonographic guidance, a 19-gauge needle and 5 Samoan Yueh catheter were advanced into the abdomen. After the return of fluid, the catheter was advanced, and the needle was removed. Approximately 4.1 L of clear straw-colored fluid was aspirated. The introducer sheath was removed, a nd hemostasis was achieved with direct pressure. A dry sterile dressing was placed. The patient tolerated the procedure well and without immediate complication. IMPRESSION: Technically successful ultrasound-guided paracentesis.
== END 2020-01-17 09:35 | disposition home or self-care (01) ==
LOC: ULT 08:00
PROVIDERS: ATTEND Internal Medicine
PROC: 0W9G3ZZ Drainage of Peritoneal Cavity, Percutaneous Approach (ICD-10-PCS; principal; 2020-01-17)
PROC: BW40ZZZ Ultrasonography of Abdomen (ICD-10-PCS; 2020-01-17)
DX: K70.31 Alcoholic cirrhosis of liver with ascites (principal); K72.90 Hepatic failure, unspecified without coma; E78.5 Hyperlipidemia, unspecified; F32.9 Major depressive disorder, single episode, unspecified; E03.9 Hypothyroidism, unspecified; K21.9 Gastro-esophageal reflux disease without esophagitis; Z87.891 Personal history of nicotine dependence; Z79.899 Other long term (current) drug therapy
CPT/HCPCS: 49083; P9047

== ENCOUNTER 2020-01-30 10:22 | Day surgery (SDC) | payer MEDICARE ==
[2020-01-29 12:43] VITALS: BMI 22.5
[~2020-01-30 10:22] MED LIST changes: +FLU VACC QS2020-21(65YR UP)/PF 240 MCG/0.7 ML SYRINGE IM ONE; -FLU VACC TS2019-20(65YR UP)/PF 180 MCG/0.5 ML SYRINGE IM ONE
[2020-01-30] MEDS ORDERED: Sodium Bicarbonate 2.5 MEQ/5 ML VIAL ONE (10:30)
[2020-01-30] MEDS ORDERED: Lidocaine 1% PF 5 ML VIAL ONE (10:30)
[2020-01-30] MEDS ORDERED: Albumin 25% 200 ML ONE (10:30)
--- NOTE | 2020-01-30 11:35 | ULT ---
Ultrasound-guided paracentesis: HISTORY: Cirrhosis and recurrent ascites FINDINGS: Informed consent obtained prior to the procedure. Preprocedural imaging demonstrated intrap eritoneal free fluid. An area was marked in the Right lower quadrant , and then meticulously prepped and draped in normal s terile fashion and anesthetized with 1% buffered lidocaine. With direct sonographic guidance, a 19-gauge needle and 5 Stateless Yueh catheter were advanced into the abdomen. After the return of fluid, the catheter was advanced, and the needle was removed. Approximately 3 L of clear straw-colored fluid was aspirated. The introducer sheath was removed, and hemostasis was achieved with direct pressure. A dry sterile dressing was placed. The patient tolerated the procedure well and without immediate complication. IMPRESSION: Technically successful ultrasound-guided paracentesis.
[2020-01-30 11:39] VITALS: BP 113/65; TEMP 98
== END 2020-01-30 11:30 | disposition home or self-care (01) ==
LOC: ULT 10:22
PROVIDERS: ATTEND Internal Medicine
PROC: 0W9G3ZZ Drainage of Peritoneal Cavity, Percutaneous Approach (ICD-10-PCS; principal; 2020-01-30)
DX: K70.31 Alcoholic cirrhosis of liver with ascites (principal); K72.90 Hepatic failure, unspecified without coma; E78.5 Hyperlipidemia, unspecified; F32.9 Major depressive disorder, single episode, unspecified; E03.9 Hypothyroidism, unspecified; K21.9 Gastro-esophageal reflux disease without esophagitis; Z87.891 Personal history of nicotine dependence; Z79.899 Other long term (current) drug therapy
CPT/HCPCS: 49083; P9047

== ENCOUNTER 2020-02-14 08:24 | Day surgery (SDC) | payer MEDICARE ==
[2020-02-13 08:26] VITALS: BMI 22.5
[2020-02-14] MEDS ORDERED: Lidocaine 1% PF 5 ML VIAL ONE (08:38)
[2020-02-14] MEDS ORDERED: Sodium Bicarbonate 2.5 MEQ/5 ML VIAL ONE (08:38)
[2020-02-14] MEDS ORDERED: Albumin 25% 200 ML ONE (08:38)
--- NOTE | 2020-02-14 10:00 | ULT ---
Ultrasound-guided paracentesis: HISTORY: Cirrhosis and recurrent ascites. FINDINGS: Informed consent obtained prior to the procedure. Preprocedural imaging demonstrated intrap eritoneal free fluid. An area was marked in the mid axillary line in the right mid abdomen, and then meticulously prepped a nd draped in normal sterile fashion and anesthetized with 1% buffered lidocaine. With direct sonographic guidance, a 19-gauge needle and 5 Tristanian Yueh catheter were advanced into the abdomen. After the return of fluid, the catheter was advanced, and the needle was removed. Approximately 2.3 L of clear straw-colored fluid was aspirated. The introducer sheath was removed, a nd hemostasis was achieved with direct pressure. A dry sterile dressing was placed. The patient tolerated the procedure well and without immediate complication. IMPRESSION: Technically successful ultrasound-guided paracentesis.
[2020-02-14 11:09] VITALS: BP 99/58; TEMP 98.1
== END 2020-02-14 11:05 | disposition home or self-care (01) ==
LOC: ULT 08:24
PROVIDERS: ATTEND Internal Medicine
PROC: 0W9G3ZZ Drainage of Peritoneal Cavity, Percutaneous Approach (ICD-10-PCS; principal; 2020-02-14)
DX: K74.60 Unspecified cirrhosis of liver (principal); I85.10 Secondary esophageal varices without bleeding; R18.8 Other ascites; E78.5 Hyperlipidemia, unspecified; F32.9 Major depressive disorder, single episode, unspecified; E03.9 Hypothyroidism, unspecified; Z79.899 Other long term (current) drug therapy
CPT/HCPCS: 49083; P9047

== ENCOUNTER 2020-03-25 12:03 | Outpatient (CLI) | payer MEDICARE ==
--- NOTE | 2020-03-25 12:31 | RAD ---
2 views of the chest: 03/25/2020 COMPARISON: 12/04/2019 HISTORY: Dyspnea FINDINGS: There is a moderate-sized right pleural effusion. There is elevation of the right hemidiaph ragm. Increased density seen in the right perihilar region and in the right lung base, nonspecific. No discrete pneumothorax is evident. There is mild interstitial density within the left lung with no definite left pleural fluid. When compared to the 12/04/2019 examination the moderate pleural effusion on the right is of similar s ize. IMPRESSION: Stable moderate right pleural effusion when compared to 12/04/2019 exam.
== END 2020-03-25 12:04 | disposition home or self-care (01) ==
LOC: BICRAD 12:03
PROVIDERS: ATTEND Internal Medicine Critical Care Medicine
DX: R06.00 Dyspnea, unspecified (principal); J90 Pleural effusion, not elsewhere classified
CPT/HCPCS: 71046

== ENCOUNTER 2020-05-06 12:47 | Outpatient (CLI) | payer MEDICARE ==
[2020-05-07 05:45] LABS: SARS-CoV-2 PCR by NAA Not Detected (NotDetected)
== END 2020-05-06 12:48 | disposition home or self-care (01) ==
LOC: LABBT 12:47
PROVIDERS: ATTEND Internal Medicine
DX: K72.90 Hepatic failure, unspecified without coma (principal); K70.31 Alcoholic cirrhosis of liver with ascites; I85.00 Esophageal varices without bleeding; R60.0 Localized edema; K42.9 Umbilical hernia without obstruction or gangrene; Z20.822 Contact with and (suspected) exposure to COVID-19
CPT/HCPCS: U0003; U0005; 87635

== ENCOUNTER 2020-05-09 07:15 | Day surgery (SDC) | payer MEDICARE ==
[2020-05-08 10:43] VITALS: BMI 24.3
[2020-05-09] MEDS ORDERED: Lidocaine 1% PF 5 ML VIAL ONE (09:01)
[2020-05-09] MEDS ORDERED: PROPOFOL 200 MG/20 ML VIAL ONE (09:01)
== END 2020-05-09 10:05 | disposition home or self-care (01) ==
LOC: SDC 07:15
PROVIDERS: ATTEND Internal Medicine
PROC: 06L38CZ Occlusion of Esophageal Vein with Extraluminal Device, Via Natural or Artificial Opening Endoscopic (ICD-10-PCS; principal; 2020-05-09)
DX: K70.31 Alcoholic cirrhosis of liver with ascites (principal); I85.10 Secondary esophageal varices without bleeding; K72.90 Hepatic failure, unspecified without coma; K21.9 Gastro-esophageal reflux disease without esophagitis; E07.9 Disorder of thyroid, unspecified; K42.9 Umbilical hernia without obstruction or gangrene; Z79.899 Other long term (current) drug therapy; Z87.891 Personal history of nicotine dependence
CPT/HCPCS: J2704

== ENCOUNTER 2020-05-29 09:45 | Outpatient (CLI) | payer MEDICARE ==
[2020-05-29 22:31] LABS: SARS-CoV-2 PCR by NAA Not Detected (NotDetected)
== END 2020-05-29 09:46 | disposition home or self-care (01) ==
LOC: LABBT 09:45
PROVIDERS: ATTEND Internal Medicine
DX: Z01.812 Encounter for preprocedural laboratory examination (principal); I85.00 Esophageal varices without bleeding; Z20.822 Contact with and (suspected) exposure to COVID-19
CPT/HCPCS: U0003; U0005; 87635

== ENCOUNTER 2020-06-03 06:55 | Day surgery (SDC) | payer MEDICARE ==
[2020-06-02 10:08] VITALS: BMI 23.7
[2020-06-03] MEDS ORDERED: Ketamine 50 MG/ML (10ML VIAL) ONE (08:54)
[2020-06-03] MEDS ORDERED: Lidocaine 1% PF 5 ML VIAL ONE (09:11)
[2020-06-03] MEDS ORDERED: PROPOFOL 200 MG/20 ML VIAL ONE (09:11)
== END 2020-06-03 10:25 | disposition home or self-care (01) ==
LOC: SDC 06:55
PROVIDERS: ATTEND Internal Medicine
PROC: 0DJ08ZZ Inspection of Upper Intestinal Tract, Via Natural or Artificial Opening Endoscopic (ICD-10-PCS; principal; 2020-06-03)
DX: K76.6 Portal hypertension (principal); K70.30 Alcoholic cirrhosis of liver without ascites; K31.89 Other diseases of stomach and duodenum; K42.9 Umbilical hernia without obstruction or gangrene; Z79.811 Long term (current) use of aromatase inhibitors; Z79.899 Other long term (current) drug therapy
CPT/HCPCS: J2704

== ENCOUNTER 2020-07-24 12:56 | Outpatient (CLI) | payer MEDICARE | END 2020-07-24 12:57 | disposition home or self-care (01) | LOC: BICRAD 12:56 | PROVIDERS: ATTEND Internal Medicine Critical Care Medicine | DX: R06.00 Dyspnea, unspecified (principal); J90 Pleural effusion, not elsewhere classified; J98.11 Atelectasis | CPT/HCPCS: 71046 ==

== ENCOUNTER 2021-01-13 10:25 | Outpatient (CLI) | payer MEDICARE | END 2021-01-13 10:26 | disposition home or self-care (01) | LOC: RAD 10:25 | PROVIDERS: ATTEND Internal Medicine Critical Care Medicine | DX: R06.00 Dyspnea, unspecified (principal) | CPT/HCPCS: 71046 ==